=== PATIENT | female | born 1995 | race Two or more races ===

== ENCOUNTER 2024-07-20 08:11 | Inpatient (IN) | payer MEDICAID, SELFPAY ==
[2024-07-20] VITALS (80 sets, daily range): BP systolic 64–105; BP diastolic 36–74; PULSE 90–143; RESP 6–90; TEMP 36.8–38.1; O2SAT 68–100; BMI 20.3
--- NOTE | 2024-07-20 08:33 | PD.EDRME ---
Rapid Medical Screening Exam E Arrival date/time: 07/20/24 08:11 29-year-old female with no known medical history presents to the emergency room with a chief complaint of left flank pain, nausea and vomiting, fever, lower abdominal pelvic pain x 2 days. Patient denies dysuria, hematuria. I have greeted and performed a focused initial assessment of this patient. A comprehensive ED assessment and evaluation of the patient, analysis of all test results, and completion of the medical decision making process will be conducted by additional ED providers. Chief Complaint: Abdominal Pain Time Seen by Provider: 07/20/24 08:13 Vital signs: Vital Signs Temperature 98.3 F 07/20/24 08:24 Pulse Rate 90 07/20/24 08:24 Respiratory Rate 15 07/20/24 08:24 Pulse Oximetry (%) 96 07/20/24 08:24 Oxygen Delivery Method Room Air 07/20/24 08:24 Vital signs reviewed by provider: Yes
[2024-07-20] MEDS: ACETAMINOPHEN 500 MG TABLET 1000 MG PO (08:39)
[2024-07-20] MEDS: RINGERS LACTATED 1000 ML 1,000 ML 2000 ML IV (08:55)
[2024-07-20] MEDS: RINGERS LACTATED 1000 ML 1,000 ML 125 ML IV (08:56)
--- NOTE | 2024-07-20 09:10 | PC.NURSE ---
Pt arrived via w/c to ER room 3 from [facility] after assess by provider and pt was found to be hypotensive with b/p in the 80's. Pt is with at bedside, pt is GCS of 15 with delay in response, they are both bel[place]ian speaking, per pt's husbamd she came in with c/o abdominal pain x3 days and n/v for 2 days with diarrhea, when asked pt how many episodes of diarrhea pt noticed to become sleepy and unable to answer and states he is unsure due to pt going to bathroom every 30min yesterday.Per pt only has x3 , gestational DM and of 4 para of 2 with one spontaneous and 1 demise at , per no other medical hx. at bedside to assess pt, orders received and carried out.
[2024-07-20 09:28] LABS: Basophils # (Auto) 0.1 Thou/mm3 (0.0-0.2); Basophils % (Auto) 1 % (0-2.5); Eosinophils % (Auto) 0 % (0-10); Hematocrit 38.4 % (36.0-46.0); Hemoglobin 13.1 g/dL (12.0-16.0); Immature Granulocytes % (Auto) 13 % (0-0); Immature Granulocytes Auto 2.01 Thou/mm3 (0.00-0.00); Lymphocytes # (Auto) 0.6 Thou/mm3 (1.0-4.8); Lymphocytes % (Auto) 4 % (10-50); Mean Corpuscular HGB Conc 34.1 g/dl (31.0-37.0); Mean Corpuscular Hemoglobin 29.6 pg (25.0-35.0); Mean Corpuscular Volume 87 fL (80-100); Monocytes # (Auto) 0.3 Thou/mm3 (0.0-0.8); Monocytes % (Auto) 2 % (0-12); Neutrophils # (Auto) 12.8 Thou/mm3 (1.8-7.7); Neutrophils % (Auto) 81 % (37-80); Nucleated Red Blood Cell % 0 /100 WBC (0); Platelet Count 124 Thou/mm3 (140-440); RDW Standard Deviation 38.6 fL (36.4-46.3); Red Blood Count 4.43 Miln/mm3 (4.00-5.20); White Blood Count 15.8 Thou/mm3 (3.6-11.0)
[2024-07-20 09:49] LABS: Alanine Aminotransferase 25 U/L (10-49); Albumin, Serum 4.1 gm/dL (3.5-5.0); Albumin/Globulin Ratio 1.4 (1.2-2.2); Alkaline Phosphatase 108 U/L (46-116); Anion Gap 12 (7-16); Aspartate Amino Transferase 35 U/L (0-34); BUN/Creatinine Ratio 14 Ratio (12-20); Bilirubin,Total 0.4 mg/dL (0.3-1.2); Blood Urea Nitrogen 46 mg/dL (9-23); Calcium 8.7 mg/dL (8.3-10.6); Calcium (Corrected) 8.7 mg/dL (8.5-10.1); Carbon Dioxide 22.1 mMol/L (20.0-31.0); Chloride 99 mMol/L (98-107); Creatinine (Component) 3.4 mg/dL (0.6-1.3); Estimated Creatinine Clearance 20.7 mL/min (>60); Globulin 2.9 gm/dL (2.3-3.5); Lipase 25 U/L (12-53); Osmolality,Calculated 295 (275-295); Sodium 133 mMol/L (136-145); eGFR 18 See Note
[2024-07-20 09:51] LABS: Collection Type, Urine Clean Catch
[2024-07-20 09:57] LABS: Glucose 404 mg/dL (74-106)
[2024-07-20 10:31] LABS: HCG Qualitative,Urine Negative
[2024-07-20] MEDS: SODIUM CHLORIDE 0.9% 1000 ML 1,000 ML 999 ML IV ×3 (10:40→11:48)
[2024-07-20 10:44] LABS: Amorphous Crystals,Urine Present (Absent); Bacteria,Urine 3+; Bilirubin,Urine Negative (Negative); Blood,Urine 3+ (Negative); Color,Urine Yellow (Lt Yel-Yel); Glucose, Urine 4+ (Negative); Ketones,Urine Negative (Negative); Leukocyte Esterase,Urine Positive (Negative); Nitrite,Urine Negative (Negative); PH,Urine 5.5 (5.0-7.0); Protein,Urine 1+ (Neg - Trace); RBC,Urine 23 /hpf (0-3); Specific Gravity,Urine 1.015 (1.001-1.035); Squamous Epithelial Cell,Urine 10 /hpf (0-5); Urobilinogen,Urine Negative mg/dL (0.0-1.0); WBC,Urine 535 /hpf (0-5)
[2024-07-20 10:45] LABS: Clarity,Urine Turbid (Clear/Hazy)
--- NOTE | 2024-07-20 10:52 | EDNOTE_ITS ---
ED Abdominal Pain RME/HPI General Chief Complaint: Abdominal Pain Stated complaint: VOMITING/DIARRHEA/LEFT ABD PAIN FOR 2 DAYS Time seen by provider: 07/20/24 08:13 Arrival date/time: 07/20/24 08:11 RME / HPI RME / HPI narrative: 07/20/24 08:11 29-year-old female with no known medical history presents to the emergency room with a chief complaint of weakness with vomiting diarrhea multiple episodes for the past 2 days and was found to be hypotensive in triage. She has history of gestational diabetes but is not known to be diabetic. She is a and miscarriage x 2. She has had multiple bouts of diarrhea but there was no blood reported. And then generalized weakness she has no acute other problem. There is no known fever but she feels cold and chilling. Related Data Previous Rx's ?Medication ?Instructions ?Recorded acetaminophen 300 mg-codeine 30 mg 1 tab PO Q8H PRN pa in #14 tabs 12/22/23 tablet ibuprofen 800 mg tablet 800 mg PO Q8H PRN pain #30 t abs 12/22/23 Allergies Allergy/AdvReac Type Severity Reaction Status Date / Time No Known Allergies Allergy Verified 07/20/24 08:16 Review of Systems Review of Systems Narrative Review of Systems: Review of Systems: Constitutional: See HPI DENIES: Fevers,; Eyes: DENIES: Loss of vision, Head/Ear/Nose: DENIES: Loss of hearing. Throat: Denies dysphagia. Cardiovascular: Denies chest pain, Dyspnea or syncope. Respiratory: DENIES: Shortness of breath, Gastrointestinal: See HPI DENIES: Rectal bleeding or melena. Genitourinary: DENIES: Dysuria (painful or difficult urination),; Musculoskeletal: DENIES: Arthralgia (pain in a joint),; Skin: DENIES: Rash,; Neurological: DENIES: loss of function or movement,; Psychiatric: DENIES: recent major life stressor, emotional problem, illicit drug use or abuse,; Endocrinology: DENIES: Weight change,; Hematologic/Lymphatic: DENIES: Abnormal bruising. Allergic/Immunologic: DENIES: Urticaria (hives), Past Medical History Past Medical History NEUROLOGIC: Negative Neurological Disorders CARDIAC: Negative Cardiac Disorders GASTROINTESTINAL: Negative Gastrointestinal Disorders GENITOURINARY: Positive Genitourinary Disorders (hx uti) REPRODUCTIVE: Positive Previous Pregnancies MUSCULOSKELETAL: Negative Musculoskeletal Disorders ENDOCRINE: Positive Endocrine Disorders HEMATOLOGIC: Positive Blood Disorders and Anemia OTHER HISTORY: Positive Chicken Pox Family History FAMILY HISTORY: Negative Family Psychiatric Problems, Family Respiratory Disorders, Family Cardiac Disorders, Family Gastrointestinal Problems, Family Cancer, Family Surgery or Family Anesthesia Reaction Surgical History SURGICAL: Positive Section Social History SMOKING STATUS: Never smoker ED Exam Narrative Physical exam: Physical Exam: General: The vital signs were reviewed. Patient is pale hypotensive on arrival tachycardic at 105 later it is up to 115 the patient is the patient appears pale and ill but alert and follows commands Head & Scalp: Normocephalic, atraumatic. Face: Appears normal and is without lesions, deformity. Ears: Left external pinna appears normal. Right external pinna appears normal. Eyes: The sclera is anicteric. No obvious photophobia. The Left and Right Orbit/Lid/Conjunctiva appears normal without swelling, discoloration or injection. Nose: The nose is without deformity, discharge or tenderness; Throat: Appears normal. The mucous membranes are pink and moist without exudates, redness or mass seen. The tongue appears normal. Neck: The neck is supple and no apparent mass or adenopathy. Chest: The chest wall is normal in size and symmetry and has no chest wall tenderness or crepitus. The patient displays normal ventilator effort without retractions, accessory muscle use and has adequate air movement bilaterally with no wheezes and no rales. Cardiovascular: Regular rate and rhythm; No murmurs, rubs, or gallops; Gastrointestinal: The abdomen appears normal. No obvious hernias or mass. The abdomen is soft and benign, non-distended, with no pain, no guarding and no rebound tenderness. Bowel sounds are present and normal sounding. No CVA tenderness. Genitourinary: Back/Spine: Normal inspection. Extremities/Musculoskeletal/lymphatic: The bilateral upper and lower extremities are warm. There is no evidence of arterial insufficiency. There is no evidence of venous insufficiency/edema. The patient spontaneously moves bilateral upper and lower extremities with no pain and no limitation of movement. There is no apparent, injury or trauma. Skin: The skin is warm, dry and intact. No rashes. No petechia. No purpura. No abnormal bruising. The color is appropriate with no cyanosis. Mental status/Psychiatric: Mental status is appropriate for age. The patient has no apparent delusions, visual hallucinations, no apparent audible hallucinations. The patient has no apparent suicidal thoughts/ideation and no apparent homicidal thoughts/ideation. Neurological: The patient is awake, alert, interactive, cordial, cooperative and is oriented to name and situation. The patient follows commands and answers historical question with no impa irment. There is no visual disturbance apparent. The pupils are equal and reactive bilaterally with normal eye movements and no diplopia The bilateral upper and lower extremities have normal strength, normal range of motion and normal functioning. The gait, station and balance were not tested due to acuity Course Quality Measures Current suspected stage: sepsis Possible source: genitourinary Blood cultures ordered: completed in ED Antibiotic ordered: Yes sepsis Orders Category Date Time Status Occult Blood,Stool (Nursing) NOW Care 07/20/24 08:51 Active Beta Hydroxybutyrate Stat Lab 07/20/24 10:02 Ordered Blood Culture (Lab) Stat Lab 07/20/24 10:48 Ordered CBC Stat Lab 07/20/24 08:49 Completed CMP [Comprehensive Metabolic Panel] Stat Lab 07/20/24 08:49 Completed HCG Qualitative,Urine Stat Lab 07/20/24 09:40 Completed Lipase Stat Lab 07/20/24 08:49 Completed Stool Culture Stat Lab 07/20/24 08:51 Ordered Stool for WBCs Stat Lab 07/20/24 08:51 Ordered UA [Urinalysis] Stat Lab 07/20/24 09:40 Completed Urine Culture Stat Lab 07/20/24 09:40 Received VBG [Venous Blood Gas] Stat Lab 07/20/24 10:02 Ordered Acetaminophen Tab [Tylenol ES Tab] Med 07/20/24 08:33 Discontinued 1,000 mg PO X1 ONE Ringers Lactated 1000 ml [Lactated Ringers] 1,000 ml Med 07/20/24 08:50 Active IV 125 mls/hr Ringers Lactated 1000 ml [Lactated Ringers] 1,000 ml Med 07/20/24 08:50 Discontinued IV 2,000 mls/hr Sodium Chloride 0.9% 1000 ml [Ns] 1,000 ml Med 07/20/24 11:04 Active IV 999 mls/hr cefTRIAXone [Rocephin] 1,000 mg Med 07/20/24 10:48 Active SODIUM CHLORIDE 0.9% (Popper) [Ns 0.9% (P)] 50 ml IV X1 Vital Signs Vital signs: Vital Signs Temperature 98.3 F 07/20/24 08:24 Pulse Rate 90 07/20/24 08:24 Respiratory Rate 15 07/20/24 08:24 Blood Pressure 83/56 L 07/20/24 08:24 Pulse Oximetry (%) 96 07/20/24 08:24 Oxygen Delivery Method Room Air 07/20/24 08:24 Abdominal Pain MDM MDM Narrative MDM Narrative:: Patient is hypotensive tachycardic on arrival has a very dry mouth as a history of multiple bouts of vomiting and diarrhea. Fluid boluses were initiated for the hypotension a septic alert was called though her rectal temperature was normal. Appears to be severely dehydrated. Medical workup came back with a white count of 15.8 hemoglobin of 13.1 platelet count of 124,000 with a sodium 133 potassium 4 chloride 99 CO2 22.1 BUN 46 creatinine 3.4 consistent with acute kidney injury. Glucose was elevated at 404 suggesting that she has more than gestational diabetes. AST ALT are within normal limits. Lipase was negative. Urinalysis came back specific gravity of 1015 with 535 white blood cells consistent with a urinary tract infection. Because the persistent hypotension despite 1.5 to almost 2 L of fluid now we will consult critical care for an ICU admit presuming he is more septic than we can tell. Lactic acid blood cultures are pending. At 1120 patient's completed 3 L of fluid she still tacky in the 130s and blood pressure is still low. I contacted Dr. Yap and he will come down to admit this patient. At 1134 hrs. critical care is down evaluating this patient will continue with aggressive fluid management agree with the antibiotics and CT is pending make sure there is no obstructive process going on in the urinary symptoms some. She be noted I have reevaluated patient multiple times in the past 3 hours and spent at least 45 minutes managing fluids and in consultation with critical care. Patient data External records reviewed:: [facility] previous records (I reviewed ED visit on 11/20/23) Clinical information provided by:: patient Social determinants that could affect healthcare access:: none Patient has the following chronic illnesses:: hx of gestational diabetes How is presenting disease/condition affected by chronic disease/condition?: uneffected by Evaluation data The following diagnostics were reviewed and interpreted by me:: lab results and radiology exam(s) Lab and/or radiology exams considered but not ordered:: none Interpretation Summary: as noted above Medications / Prescriptions Medications or Prescriptions considered but not ordered:: none Medication administrations:: Medication Administration History Lactated Ringer's (Lactated Ringers) 1,000 mls @ 125 mls/hr IV .Q8H ONE Stop: 07/20/24 16:49 Last Infusion: 07/20/24 11:00 Dose: Infused Documented By: Admin: 07/20/24 08:56 Dose: 125 mls/hr Documented By: IZA Ceftriaxone Sodium 1,000 mg/ (Sodium Chloride) 50 mls @ 100 mls/hr IV X1 ONE Stop: 07/20/24 11:17 Sodium Chloride (Ns) 1,000 mls @ 999 mls/hr IV .Q1H1M ONE Stop: 07/20/24 12:04 Discontinued Medications Acetaminophen (Acetaminophen 500 Mg Tablet) 1,000 mg PO X1 ONE Stop: 07/20/24 08:34 Last Admin: 07/20/24 08:39 Dose: 1,000 mg Documented By: BD Lactated Ringer's (Lactated Ringers) 1,000 mls @ 2,000 mls/hr IV .Q30M ONE Stop: 07/20/24 09:19 Last Infusion: 07/20/24 10:35 Dose: Infused Documented By: Admin: 07/20/24 08:55 Dose: 2,000 mls/hr Documented By: IZA see above Consultations Consultation(s) initiated? (list below): Yes Diagnosis Differential diagnosis abdominal pain: abdominal pain, acute appendicitis, calculus of kidney, constipation, diverticulitis, endometriosis, gastroenteritis, pancreatitis and other (Sepsis, UTI) Most likely diagnosis given after review of the tests above:: Urosepsis with severe dehydration with acute renal failure and underlying diabetes untreated cannot exclude a viral gastroenteritis causing diarrhea. Admission Indicated Admission indicated?: indicated Admission Request Was there a request for admission?: Yes Admission Attestation Admission request attestation: Discussed case with [] from Hospitalist service regarding admission. Discussed patients ED course, exam findings, labs, and radiology results. The Hospitalist [agrees,declines] to accept the patient for admission. Disposition Plan Disposition Plan: Admit Critical Care Time Critical Care Time Critical Care Time: Yes Total Critical Care Time (min.): 45 Attestation: The high probability of sudden, clinically significant deterioration in the patient's condition required the highest level of my preparedness to intervene urgently. The services I provided to this patient were to treat and/or prevent clinically significant deterioration. Services included the following: chart data review, reviewing nursing notes and/or old charts, documentation time, senior energy consultant collaboration regarding findings and treatment options, medication orders and management, direct patient care, vital sign assessments and ordering, interpreting and reviewing diagnostic studies and lab tests. Aggregate critical care time includes only time during which I was engaged in work directly related to the patient's care, as described above, whether at bedside or elsewhere in the Emergency Department. It did not include time spent performing other reported procedures or the services of residents, students, nurses or physician assistants. Discharge Plan Plan Patient Disposition: Admit Acute Care w/in Hospital Disposition Comment: ICU Dr. Iverson Prescriptions/Referrals Prescriptions/Med Rec: No Action acetaminophen-codeine 300-30 mg tablet 1 tab PO Q8H PRN (Reason: pain) Qty: 14 0RF ibuprofen 800 mg tablet 800 mg PO Q8H PRN (Reason: pain) Qty: 30 0RF Referrals: Janay Pichardo [employer] [Primary Care Provider] - In 1 week Problem List Clinical Impression: Acute hypotension, Urinary tract infection, Acute renal failure (ARF), Hyperglycemia, Sepsis Patient/Caregiver Discharge Instructions Print Language: Croatian Stand Alone Forms: Marina Award Info., Patient Portal Info Letter
[2024-07-20] MEDS: SODIUM CHLORIDE 0.9% 1000 ML 2,000 ML 999 ML IV (11:05)
[2024-07-20 11:21] LABS: Base Excess, Venous -11 (-3-3); O2 Saturation, Venous 66 % (96-97); PCO2, Venous 33 mmHg (36-56); PO2, Venous 38 mmHg (15-58); pH, Venous 7.27 (7.33-7.66)
--- NOTE | 2024-07-20 11:22 | XR_ITS ---
Examination: AP chest single view Technique one AP portable upright chest single view Exam date and time: July 20, 2024 1037 hrs. Indications: Hypotension today. Findings: Normal heart size. Mild vascular congestion. No lobar pneumonia or pulmonary edema Impression: Mild vascular congestion
--- NOTE | 2024-07-20 11:22 | XR_ITS ---
EXAMINATION: CT chest abdomen pelvis wo ORDERING PROVIDER: Saleem Everett MD HISTORY: Hypotension tachycardia. Further history discussed with ER doctor is refractory hypotension, patient having received 7 L of IV fluid, history of gestational diabetes now with uncontrolled glucose, and pyuria. TECHNIQUE: Without intravenous or oral contrast, CT was used in the volumetric, helical imaging acquisition of the chest, abdomen, and pelvis with 2-D and 3-D reformats generated on a separate workstation and submitted for interpretation. Institutional dose reducing protocols were utilized. Evaluation of hollow viscus and solid viscera is limited secondary to lack of intravenous and oral contrast. RADIATION DOSE: DLP 463 mGy-cm COMPARISON: None. FINDINGS: Imaging is motion degraded, especially of the chest, and difficult to interpret fine detail 6. There are increased interstitial thickening, with scattered ground glass/airspace opacities most pronounced on the right side. Due to motion degradation, evaluation of small pulmonary nodules is limited. There is pulmonary vascular prominence. Trace right pleural effusion is present. There is bibasilar atelectasis. Perihilar and mediastinal calcified lymph nodes are present. There is probably a small azygos lobe variant. There is a punctate calcification at the diaphragm/hepatic dome. No hepatic lesion is identified. There is dependent subcentimeter cholelithiasis. Near complete fatty replacement of the pancreatic body and tail. Spleen grossly unremarkable. Adrenal glands unremarkable. Mild amount of right-sided perinephric fat stranding. No right-sided hydronephrosis. Moderate left-sided hydronephrosis with air primarily in the collecting system and proximal ureter with hydroureter. Moderate to severe left-sided perinephric fat stranding and ureterectasis. No ureteral stone identified. Mild bladder wall thickening. Urinary catheter present, without balloon identified. Antidependent air in the bladder. Fluid density in the rectum. No CT findings for bowel obstruction. Appendix nondilated. Some scattered fluid density in loops of small bowel, which are not dilated. Uterus and ovaries grossly unremarkable, though not well evaluated given noncontrast technique. Small amount of free fluid in the pelvis. Ventral lower abdominal/pelvic wall scar. Probable mild amount of periportal edema. Vasculature otherwise grossly unremarkable given noncontrast technique, apart from some trace early atherosclerotic changes of the right hypogastric artery posterior division. There is mild subcutaneous fat stranding of the lower abdominal wall and pelvis. IMPRESSION: 1. Inflammatory changes surrounding the genitourinary system, most severe about the left kidney, which demonstrates moderate hydronephrosis and air primarily located in the collecting system. Overall favor emphysematous pyelitis, though degree of inflammation and lack of IV contrast makes developing emphysematous pyelonephritis difficult to exclude. Urology evaluation is highly recommended. Query if patient has signs and symptoms of urosepsis. 2. Interstitial thickening with right greater than left multilobar airspace opacities, along with trace right pleural effusion. Given history, favor pulmonary edema, though superimposed pneumonia could have a similar appearance. 3. Early atherosclerotic changes and near complete fatty replacement of the pancreatic body and tail. Query history of metabolic versus congenital syndromes, including uncontrolled diabetes mellitus. 4. Findings which can be seen with enteritis. 5. Perihilar and mediastinal calcified lymph nodes, can be seen with history granulomatous disease. Discussed with Dr. Pereira at 3:12 PM 07/20/2024 via phone. He expressed understanding.
[2024-07-20 11:29] LABS: Beta Hydroxybutyrate 0.1 mmol/L (<0.6)
[2024-07-20] MEDS: cefTRIAXone 1,000 MG in SODIUM CHLORIDE 0.9% (Popper) 50 ML 100 MG IV ×2 (11:38→12:13)
--- NOTE | 2024-07-20 11:54 | ESHP_ITS ---
Documentation for date of: 07/20/24 HPI History of Present Illness History of present illness: 29-year-old female with past medical history of gestational diabetes mellitus, recurrent urinary tract infection came to the ED with chief complaint of multiple episode of nausea and vomiting multiple episode of diarrohoa with no blood in it since last 2 days, she states she has not changed anything in her diet. she is A2. As per her ED vitals significant for BP?86/74, P?127, RR?36, temperature?99.4 , 96L on room air . Initial labs WBC?15.8, hemoglobin?13.1, VBG?pH 7.27, pCO2?33, pO2?38, sodium?133, potassium?4, BUN?36, creatinine?3.6, glucose?404, IGF-I?18, AST?35, ALT?25, alk phos?118. UA positive for urinary tract infection. hCG?negative. Imaging?chest x-ray?Mild vascular congestion , CT abdomen and pelvis- Inflammatory changes surrounding the genitourinary system, most severe about the left kidney, which demonstrates moderate hydronephrosis and air primarily located in the collecting system. Overall favor emphysematous pyelitis, though degree of inflammation and lack of IV contrast makes developing emphysematous pyelonephritis difficult to exclude.2. Interstitial thickening with right greater than left multilobar airspace opacities, along with trace right pleural effusion.3. Early atherosclerotic changes and near complete fatty replacement of the pancreatic body and tail. Query history of metabolic versus congenital syndromes, including uncontrolled diabetes mellitus. In ED she received 2 g of IV ceftriaxone. Will follow-up on the lactic acid, she received total of 6 L of IV fluids(4 L NS, 2 L LR) . Patient was still hypotensive. Upgraded to ICU for severe sepsis for pressor support. PMH- as above PSH- section Allergy?none Social history?lives with and children Medication?none Review of Systems Review of Systems Systems Reviewed: All systems reviewed, normal except as documented Narrative Review of Systems: GENERAL: adult female seen resting in hospital bed, mild stressed HEENT: Normocephalic, atraumatic. Pupils are equal and reactive. Oral mucosa is moist. NECK: Supple, nontender, no JVD CHEST: Symmetrical, atraumatic and with equal expansion ,Nontender on palpation CARDIOVASCULAR: Tachycardic S1/S2. no murmur or gallop rub or extra beats. LUNGS: Clear to auscultation bilaterally with symmetrical chest rise. No laboring tachypnea or wheezing. No intercostal subcostal retraction. No rales and no rhonchi. ABDOMEN: Soft, flat, nontender to palpation, no guarding or rebound tenderness. Active and normal bowel sounds. EXTREMITIES:Moves all 4 extremities,No B/L LE edema. SKIN: Warm and dry, no jaundice or rashes noted. NEURO: Patient is AO x 3, Cranial nerves II through XII grossly intact. There is no focal neurologic deficits noted. PSYCHIATRIC: Patient is in normal mood, cooperative, no SI or HI or hallucinations. Exam Vital Signs Temp Pulse Resp BP Pulse Ox O2 Del Method 99.4 F 143 H 32 H 96/71 99 Room Air 07/20/24 11:24 07/20/24 11:24 07/20/24 11:24 07/20/24 11:24 07/20/24 11:24 07/20/24 11:24 Results: Labs 07/20/24 08:49 07/20/24 13:58 Labs: Short CBC 07/20/24 Range/Units 08:49 WBC 15.8 H (3.6-11.0) Thou/mm3 Hgb 13.1 (12.0-16.0) g/dL Hct 38.4 (36.0-46.0) % Plt Count 124 L (140-440) Thou/mm3 BMP 07/20/24 08:49 Sodium 133 L Potassium 4.0 Chloride 99 Carbon Dioxide 22.1 BUN 46 H Creatinine 3.4 H Glucose 404 H* Calcium 8.7 Liver Function 07/20/24 Range/Units 08:49 Total Bilirubin 0.4 (0.3-1.2) mg/dL AST 35 H (0-34) U/L ALT 25 (10-49) U/L Alkaline Phosphatase 108 (46-116) U/L Albumin 4.1 (3.5-5.0) gm/dL Urine 07/20/24 Range/Units 09:40 Urine Color Yellow (Lt Yel-Yel) Urine Clarity Turbid A (Clear/Hazy) Urine pH 5.5 (5.0-7.0) Ur Specific Mott 1.015 (1.001-1.035) Urine Protein 1+ A (Neg - Trace) Urine Glucose (UA) 4+ A (Negative) ABG Interpretation ABG results: 07/20/24 11:12 VBG pH 7.27 L VBG pCO2 33 L VBG pO2 38 VBG Base Excess -11 L Quality Measures Quality Measures sepsis Current suspected stage: sepsis Possible source: genitourinary Blood cultures ordered: completed in ED Antibiotic ordered: Yes Medications Home Medications and Allergies Allergies Allergy/AdvReac Type Severity Reaction Status Date / Time No Known Allergies Allergy Verified 07/20/24 08:16 Visit Medications Acetaminophen (Acetaminophen 325 Mg Tablet) 650 mg PO Q6H PRN PRN Reason: Fever >101.5 Stop: 08/19/24 11:48 Lactated Ringer's (Lactated Ringers) 1,000 mls @ 125 mls/hr IV .Q8H ONE Stop: 07/20/24 16:49 Last Infusion: 07/20/24 11:00 Dose: Infused Sodium Chloride (Ns) 1,000 mls @ 999 mls/hr IV .Q1H1M ONE Stop: 07/20/24 12:04 Last Infusion: 07/20/24 11:47 Dose: Infused Ceftriaxone Sodium 1,000 mg/ (Sodium Chloride) 50 mls @ 100 mls/hr IV X1 ONE Stop: 07/20/24 12:14 Sodium Chloride (Ns) 1,000 mls @ 999 mls/hr IV .Q1H1M ONE Stop: 07/20/24 12:43 Last Infusion: 07/20/24 11:48 Dose: Infused Sodium Chloride (Ns) 2,000 mls @ 999 mls/hr IV .Q2H1M ONE Stop: 07/20/24 13:45 Sodium Chloride (Ns) 1,000 mls @ 999 mls/hr IV .Q1H1M ONE Stop: 07/20/24 12:45 Ondansetron HCl (Ondansetron Inj 2 Mg/Ml Inj 2 Ml) 4 mg IV Q6H PRN; Protocol PRN Reason: NAUSEA OR VOMITING Stop: 08/19/24 11:48 Sennosides (Senna Tablet) 1 tab PO QDAY PRN; Protocol PRN Reason: constipation Stop: 08/19/24 11:48 Discontinued Medications Acetaminophen (Acetaminophen 500 Mg Tablet) 1,000 mg PO X1 ONE Stop: 07/20/24 08:34 Last Admin: 07/20/24 08:39 Dose: 1,000 mg Lactated Ringer's (Lactated Ringers) 1,000 mls @ 2,000 mls/hr IV .Q30M ONE Stop: 07/20/24 09:19 Last Infusion: 07/20/24 10:35 Dose: Infused Ceftriaxone Sodium 1,000 mg/ (Sodium Chloride) 50 mls @ 100 mls/hr IV X1 ONE Stop: 07/20/24 11:17 Last Admin: 07/20/24 11:38 Dose: 100 mls/hr Vancomycin HCl 1,000 mg/ (Sodium Chloride) 250 mls @ 150 mls/hr IV X1 ONE Stop: 07/20/24 13:07 Last Admin: 07/20/24 11:42 Dose: Not Given Vancomycin/Sodium Chloride (Vancomycin/Ns 1 Gm Ivpb) 200 mls @ 120 mls/hr IV X1 ONE Stop: 07/20/24 13:09 Last Admin: 07/20/24 11:42 Dose: Not Given Assessment & Plan Plan 29-year-old female with past medical history of gestational diabetes mellitus, recurrent urinary tract infection came to the ED with chief complaint of multiple episode of nausea and vomiting multiple episode of diarrohoa with no blood in it since last 2 days. Admitted for sepsis secondary to urinary tract infection [employer] Stable CVS #Tachycardic -ekg sinus tachycardia , secodary to sepsis . #septic shock -secondary to UTI -on levophed (SEE ID below ) RESPI Chest xray- mild vascular congestion GI #diarrhoea -iv fluids give , -She did not had any new episode in the hospital -we will follow up urine culture -Protonix ENDO # New onset Diabetes mellitus # History of gestational diabetes mellitus -She had a history of diabetes mellitus after that she never followed, A1c today came back at 14 -Started on lisulin sliding scale -Insulin Glargine 5 sq hs . -hypoglycemia protocol in place ID # Severe sepsis secondary to urinary tract infection # emphysematous pyelitis, -Patient has a recurrent history of urinary tract infection with E. coli -UA was positive for UTI -She received 6 L of fluid in the ED (4 NS, 2 LR) -levophed started for pressure support -LR at the rate 125 mL/h -LA- 4.1 -Will follow-up on blood culture, urine culture -Started the patient on ceftriaxone 2 g daily -Follow-up MRSA nares -Gray catheter inserted for strict FREDDY's #CT abdomen and pelvis- Inflammatory changes surrounding the genitourinary system, most severe about the left kidney, which demonstrates moderate hydronephrosis and air primarily located in the collecting system. Overall favor emphysematous pyelitis, though degree of inflammation and lack of IV contrast makes developing emphysematous pyelonephritis difficult to exclude.2. Interstitial thickening with right greater than left multilobar airspace opacities, along with trace right pleural effusion.3. Early atherosclerotic changes and near complete fatty replacement of the pancreatic body and tail. Query history of metabolic versus congenital syndromes, including uncontrolled diabetes mellitus. -Changed antibiotics to zosyn and added fluconazole RENAL #SHANTI -Most likely prerenal in the setting of sepsis -on admission Cr of 3.4 -She received 6 L of fluid in the ED (4 NS, 2 LR) -Will follow-up CMP in the afternoon. -Will continue to monitor #cultures -blood culture- pending -Urine culture - pending Disposition: Admitted to ICU for severe sepsis secondary to urinary tract infection requiring pressor support Diet and fluids: LR at the rate 125 mL/h, n.p.o. DVT prophylaxis: Heparin GI prophylaxis: Protonix CODE STATUS: Full code Discussed the patient with my attending Anum Em MD,PGY-3 Attending Provider Attestation/Addendum Patient seen and examined with the above resident, Anum Arciniega MD. I agree with the findings, assessment, and plan of care as documented except for any differences below. Patient with pyelonephritis. CT abdomen/ pelvis showed significant pyelonephritis with gas component. No definitive obstruction though hydroureter and hydronephrosis noted. Started on ceftriaxone, high dose but transitioned Zosyn for broader coverage. Also on diflucan for amarjit as alternate etiology. Patient with downtrending lactate. Monitor UOP closely. Follow up blood and urine cxs. Patient with improving renal function, follow up with electrolyte replacement promptly. Patient with significant risk of worsening though on low dose levophed alone currently. Maintain MAP >65. If unable to clear infection promptly may need nephrostomy drain placement. Patient and updated on plan of care at bedside in ED. Patient continues to require critical care services for septic shock 2/2 acute emphysematous pyelonephritis and acute renal failure. She remains at risk for further morbidity and mortality warranting close monitoring any care in the intensive care unit. Total critical care time: I personally spent 35 minutes for review of physiologic parameters, directing plan of care, and coordination of care with other specialists. This is exclusive of time spent teaching housestaff or performing any separate billable procedures.
[2024-07-20 12:32] LABS: Lactate (Lactic Acid) 4.1 mMol/L (0.4-2.0)
[2024-07-20 12:37] LABS: Glucose Estimated Average 355 mg/dL (80-131)
[2024-07-20] MEDS: Norepinephrine/D5W 8mg/250ml 8 MG/250 ML BAG 5.036 MG IV (12:52)
[2024-07-20 14:44] LABS: Alanine Aminotransferase 18 U/L (10-49); Albumin, Serum 2.7 gm/dL (3.5-5.0); Albumin/Globulin Ratio 1.4 (1.2-2.2); Alkaline Phosphatase 303 U/L (46-116); Anion Gap 11 (7-16); Aspartate Amino Transferase 17 U/L (0-34); BUN/Creatinine Ratio 17 Ratio (12-20); Bilirubin,Total 0.2 mg/dL (0.3-1.2); Blood Urea Nitrogen 40 mg/dL (9-23); Calcium (Corrected) 7.2 mg/dL (8.5-10.1); Carbon Dioxide 15.9 mMol/L (20.0-31.0); Chloride 115 mMol/L (98-107); Creatinine (Component) 2.4 mg/dL (0.6-1.3); Estimated Creatinine Clearance 29.3 mL/min (>60); Glucose 160 mg/dL (74-106); Osmolality,Calculated 295 (275-295); Potassium 2.8 mMol/L (3.4-5.1); Sodium 142 mMol/L (136-145); Total Protein 4.7 gm/dL (5.7-8.2); eGFR 27 See Note
[2024-07-20 14:47] LABS: Calcium 6.2 mg/dL (8.3-10.6)
[2024-07-20] MEDS: PANTOPRAZOLE INJ 40 MG VIAL IV (15:15)
[2024-07-20] MEDS: HEPARIN SOD INJ 5000 UNIT/ML VIAL SC ×2 (15:22→21:42)
[2024-07-20 15:25] LABS: Reflex Lactate? Y
[2024-07-20] MEDS: PIPER/TAZO INJ 3.375 GM in SODIUM CHLORIDE 0.9% (Popper) 50 ML IV ×2 (16:15→21:47)
[2024-07-20 16:23] LABS: Lactic Acid, 3 HR 2.8 mMol/L (0.4-2.0)
[2024-07-20] MEDS: FLUCONAZOLE 100 MG TABLET 400 MG PO (16:28)
[2024-07-20] MEDS: POTASSIUM CHLORIDE 10% 20 MEQ/15 ML UDC 30 MEQ PO ×2 (16:55→17:38)
--- NOTE | 2024-07-20 18:26 | XR_ITS ---
Examination: AP chest single view Technique one AP portable semiupright chest single view Exam date and time: July 20, 2024 1735 hrs. Comparison July 17, 2024 10:39 AM Indications: Post central line placement Findings: Right internal jugular central line tip right atrium No pneumothorax Perihilar bilateral pneumonia Impression: Right internal jugular central line tip right atrium
--- NOTE | 2024-07-20 18:43 | PD.RESPROC ---
Procedures Procedure Date / Time 07/20/24 1843 Procedure Narrative Procedure Narrative: Attending Attestation: I was not present at the time of procedure though plan of care discussed with me and I agree with procedure as completed/ documented. Follow up chest film shows no post procedure PTX though line appears to be deep and can be retracted 4 cm. Okay to use in interim. Monitor for ectopy Central Line Placement Right IJ: Indication(s): shock Informed consent obtained: from patient Time out done, and the following verified: correct patient and procedure Patient placed on monitor/pulse ox: Yes Hand Hygiene: scrub and soap & water Max Sterile Barrier Techniques used: cap, mask, sterile gown, sterile gloves and sterile full body drape Central line prep: Chlorhexidine scrub Local anesthesia used: lidocaine 1% Amount of anesthesia used (mL): 3 Ultrasound used for placement: Yes Sterile Technique if Ultrasound used, including sterile gel: yes Central line lumen inserted: triple Post procedure: sutured in place, good blood return, all ports aspirated, flushed, capped and sterile dressing applied Post procedure x-ray: tip of catheter in good position and no pneumothorax seen Patient tolerated procedure: well and no complications EBL(ml): 1 Complications: none
[2024-07-20] MEDS: INSULIN GLARGINE (Lantus) 5 UNIT/0.05 ML (PER 5 UNITS) SC (21:41)
[2024-07-20 22:02] LABS: Stool for WBCs Negative (Negative)
[2024-07-21] VITALS (112 sets, daily range): BP systolic 53–112; BP diastolic 43–73; PULSE 90–119; RESP 0–99; TEMP 36.9–38.5; O2SAT 86–100; BMI 21.4
[2024-07-21] MEDS: ACETAMINOPHEN 325 MG TABLET 650 MG PO (01:37)
[2024-07-21] MEDS: ONDANSETRON INJ 2 MG/ML INJ 2 ML 4 MG IV ×2 (01:37→23:57)
--- NOTE | 2024-07-21 02:55 | XR_ITS ---
Examination: AP chest single view Technique one AP portable upright chest single view Exam date and time: July 21, 2024 0209 hrs. Comparison July 20, 2024 Indications: Reposition central line Findings: Right internal jugular central line tip right atrium Atelectasis versus pneumonia left base No pneumothorax Impression: Right internal jugular central line tip right atrium
[2024-07-21] MEDS: LIDOCAINE HCL 1% 20 ML VIAL 10 ML INFL (03:00)
[2024-07-21] MEDS: HEPARIN SOD INJ 5000 UNIT/ML VIAL SC ×3 (05:16→22:06)
[2024-07-21] MEDS: PIPER/TAZO INJ 3.375 GM in SODIUM CHLORIDE 0.9% (Popper) 50 ML IV (05:16)
[2024-07-21 05:33] LABS: Basophils # (Auto) 0.1 Thou/mm3 (0.0-0.2); Basophils % (Auto) 1 % (0-2.5); Eosinophils % (Auto) 0 % (0-10); Hematocrit 31.3 % (36.0-46.0); Hemoglobin 10.4 g/dL (12.0-16.0); Immature Granulocytes % (Auto) 1 % (0-0); Immature Granulocytes Auto 0.06 Thou/mm3 (0.00-0.00); Lymphocytes % (Auto) 9 % (10-50); Mean Corpuscular HGB Conc 33.2 g/dl (31.0-37.0); Mean Corpuscular Hemoglobin 29.4 pg (25.0-35.0); Mean Corpuscular Volume 88 fL (80-100); Monocytes # (Auto) 0.3 Thou/mm3 (0.0-0.8); Monocytes % (Auto) 2 % (0-12); Neutrophils # (Auto) 9.7 Thou/mm3 (1.8-7.7); Neutrophils % (Auto) 88 % (37-80); Nucleated Red Blood Cell % 0 /100 WBC (0); RDW Standard Deviation 41.3 fL (36.4-46.3); Red Blood Count 3.54 Miln/mm3 (4.00-5.20); White Blood Count 11.1 Thou/mm3 (3.6-11.0)
[2024-07-21 05:38] LABS: Platelet Count 55 Thou/mm3 (140-440)
[2024-07-21 06:31] LABS: Slide Review Platelets confirmed
[2024-07-21 06:34] LABS: Alanine Aminotransferase 42 U/L (10-49); Albumin/Globulin Ratio 1.4 (1.2-2.2); Alkaline Phosphatase 108 U/L (46-116); Anion Gap 12 (7-16); Aspartate Amino Transferase 285 U/L (0-34); BUN/Creatinine Ratio 16 Ratio (12-20); Bilirubin,Total 0.3 mg/dL (0.3-1.2); Blood Urea Nitrogen 47 mg/dL (9-23); Calcium (Corrected) 7.8 mg/dL (8.5-10.1); Carbon Dioxide 15.4 mMol/L (20.0-31.0); Chloride 117 mMol/L (98-107); Creatinine (Component) 2.9 mg/dL (0.6-1.3); Estimated Creatinine Clearance 24.7 mL/min (>60); Globulin 2.1 gm/dL (2.3-3.5); Glucose 87 mg/dL (74-106); Magnesium 1.4 mg/dL (1.6-2.6); Osmolality,Calculated 298 (275-295); Potassium 3.2 mMol/L (3.4-5.1); Sodium 144 mMol/L (136-145); Total Protein 5.1 gm/dL (5.7-8.2); eGFR 22 See Note
--- NOTE | 2024-07-21 08:00 | PC.NURSE ---
Notified Marlene weiss of CT scan abdomen and pelvis w/out contrast for possible nephrostomy tube placement ordered by dr. moore if ordering MD still wants to proceed with nephrostomy tube placement. If so, New order for nephrostomy tube need to be placed.
[2024-07-21 09:14] LABS: INR 1.3 (0.9-1.3); Prothrombin Time 13.7 Seconds (9.0-12.2)
[2024-07-21] MEDS: PANTOPRAZOLE INJ 40 MG VIAL IV (09:15)
[2024-07-21 09:56] LABS: Band Neutrophils (Manual) 26 % (0-6); Lymphocytes (Manual) 6 % (20-44); Metamyelocytes (Manual) 5 % (0-0); Monocytes (Manual) 5 % (2-9); Neutrophils (Manual) 58 % (50-70)
[2024-07-21 10:52] LABS: Clostridium Difficile PCR Negative (Negative)
[2024-07-21] MEDS: FLUCONAZOLE 100 MG TABLET 400 MG PO (11:41)
[2024-07-21] MEDS: DEXTROSE 50%-WATER INJ 50 ML SYRINGE IV (11:50)
[2024-07-21] MEDS: POTASSIUM CHLORIDE 20 mEq TABCR 40 MEQ PO (12:03)
--- NOTE | 2024-07-21 12:05 | ESPR_ITS ---
Documentation for date of: 07/21/24 Subjective Subjective Interval history: Patient was seen and examined. No acute overnight events. We were trying to wean from Levophed, however unsuccessful, Levophed rate was decreased from 0.09- 0.07, will continue to closely monitor BP, MAP is currently above 62, otherwise patient denies any acute complaints, labs improved, leukocytosis improved, patient does have anemia, most likely hemodilutional in the setting of fluid resuscitation. Patient is having adequate urine output, blood culture grew GNR, urine culture still pending, we will continue coverage with Zosyn, patient also getting empirically fluconazole. Continue closely monitor vitals, kidney function compared to admission slightly improved down from 3.3-2.9, AST was elevated from 17-255. Given the improvement of kidney function and hemodynamics, we will hold off on nephrostomy tube placement, will continue closely monitor, for now continue current management. Exam Vital Signs Temp Pulse Resp BP Pulse Ox O2 Del Method O2 Flow Rate 98.4 F 94 26 H 80/52 L 100 Room Air 2 07/21/24 12:00 07/21/24 12:00 07/21/24 12:00 07/21/24 12:00 07/21/24 12:00 07/21/24 12:07/20/24 17:06 Narrative Exam GENERAL: no acute distress, AAO x3, well nourished. Citizen [place]-speaking HEENT: Head AT/ NC. Mucous membranes moist. PERRL. NECK: Supple, no lymphadenopathy, no carotid bruits. CARDIOVASCULAR: RRR. Normal S1/S2, No m/r/g. No pitting edema of bilateral LEs. RESPIRATORY: CTAB. No wheezing, rhonchi, crackles. GASTROINTESTINAL: Abdomen soft, non tender no palpable masses. Bowel sounds present in all 4 quadrants. Longitudinal scar from was noted MUSCULOSKELETAL:? No cyanosis or edema, no visible joint swelling. NEUROLOGICAL: CN II-XII grossly intact. No focal deficits. Sensation intact, symmetric. PSYCHIATRIC: Awake and alert, not agitated, normal mood and affect. INTEGUMENTARY: No obvious rashes, no jaundice, normal turgor. Objective Labs 07/22/24 04:45 07/22/24 04:45 Labs: Laboratory Results - last 24 hr 07/20/24 07/20/24 07/20/24 08:49 12:20 13:58 WBC RBC Hgb Hct MCV MCH MCHC RDW Std Deviation Plt Count Neut % (Auto) Lymph % (Auto) Whitley % (Auto) Eos % (Auto) Baso % (Auto) Neut # (Auto) Lymph # (Auto) Whitley # (Auto) Eos # (Auto) Baso # (Auto) Immature Gran # (Auto) Absolute Nucleated RBC Immature Gran % Neutrophils % (Manual) Monocytes % (Manual) Metamyelocytes % Nucleated RBC % Band Neutrophils Lymphocytes (Manual) PT INR Sodium 142 Potassium 2.8 L D Chloride 115 H Carbon Dioxide 15.9 L Anion Gap 11 BUN 40 H Creatinine 2.4 H D Estim Creat Clear Calc 29.3 L eGFR 27 L BUN/Creatinine Ratio 17 Glucose [address] Glu mg/dL 355 H Hemoglobin A1c 14.0 H Calculated Osmolality 295 Lactic Acid 4.1 H* Calcium 6.2 L* D Corrected Calcium 7.2 L D Magnesium Total Bilirubin 0.2 L AST 17 ALT 18 Alkaline Phosphatase 303 H D Total Protein 4.7 L Albumin 2.7 L D Globulin 2.0 L Albumin/Globulin Ratio 1.4 Stool for White Cells Stl C. diff Tox B Gene Misc Test Result 07/20/24 07/20/24 07/21/24 16:13 20:40 00:00 WBC RBC Hgb Hct MCV MCH MCHC RDW Std Deviation Plt Count Neut % (Auto) Lymph % (Auto) Whitley % (Auto) Eos % (Auto) Baso % (Auto) Neut # (Auto) Lymph # (Auto) Whitley # (Auto) Eos # (Auto) Baso # (Auto) Immature Gran # (Auto) Absolute Nucleated RBC Immature Gran % Neutrophils % (Manual) Monocytes % (Manual) Metamyelocytes % Nucleated RBC % Band Neutrophils Lymphocytes (Manual) PT INR Sodium Potassium Chloride Carbon Dioxide Anion Gap BUN Creatinine Estim Creat Clear Calc eGFR BUN/Creatinine Ratio Glucose Estimated Ave Glu mg/dL Hemoglobin A1c Calculated Osmolality Lactic Acid 2.8 H Calcium Corrected Calcium Magnesium Total Bilirubin AST ALT Alkaline Phosphatase Total Protein Albumin Globulin Albumin/Globulin Ratio Stool for White Cells Negative Stl C. diff Tox B Gene Negative Misc Test Result 07/21/24 07/21/24 04:35 05:00 WBC 11.1 H RBC 3.54 L Hgb 10.4 L D Hct 31.3 L MCV 88 MCH 29.4 MCHC 33.2 RDW Std Deviation 41.3 Plt Count 55 L D Neut % (Auto) 88 H Lymph % (Auto) 9 L Whitley % (Auto) 2 Eos % (Auto) 0 Baso % (Auto) 1 Neut # (Auto) 9.7 H Lymph # (Auto) 1.0 Whitley # (Auto) 0.3 Eos # (Auto) 0.0 Baso # (Auto) 0.1 Immature Gran # (Auto) 0.06 H Absolute Nucleated RBC 0.00 Immature Gran % 1 H Neutrophils % (Manual) 58 Monocytes % (Manual) 5 Metamyelocytes % 5 H Nucleated RBC % 0 Band Neutrophils 26 H Lymphocytes (Manual) 6 L PT 13.7 H INR 1.3 Sodium 144 Potassium 3.2 L Chloride 117 H Carbon Dioxide 15.4 L Anion Gap 12 BUN 47 H Creatinine 2.9 H D Estim Creat Clear Calc 24.7 L eGFR 22 L BUN/Creatinine Ratio [address] Glu mg/dL Hemoglobin A1c Calculated Osmolality 298 H Lactic Acid Calcium 7.0 L Corrected Calcium 7.8 L Magnesium 1.4 L Total Bilirubin 0.3 AST 285 H ALT 42 Alkaline Phosphatase 108 D Total Protein 5.1 L Albumin 3.0 L Globulin 2.1 L Albumin/Globulin Ratio 1.4 Stool for White Cells Stl C. diff Tox B Gene Misc Test Result Platelets confirmed ABG Interpretation ABG results: 07/20/24 11:12 VBG pH 7.27 L VBG pCO2 33 L VBG pO2 38 VBG Base Excess -11 L Quality Measures Quality Measures sepsis Current suspected stage: sepsis Possible source: genitourinary Blood cultures ordered: completed in ED Antibiotic ordered: Yes Assessment & Plan Assessment Current Active Medications: Generic Name Dose Route Start Last Admin Trade Name Freq PRN Reason Stop Dose Admin Acetaminophen 650 mg 07/20/24 11:49 07/21/24 01:37 Acetaminophen 325 Mg Tablet PO 08/19/24 11:48 650 mg Q6H PRN Administration Fever >101.5 Dextrose 25 ml 07/20/24 14:11 Dextrose 50%-Water Inj 50 Ml Syringe IV 08/19/24 14:10 Q15MIN PRN BG 50-70 responsive npo pt Dextrose 50 ml 07/20/24 14:11 07/21/24 11:50 Dextrose 50%-Water Inj 50 Ml Syringe IV 08/19/24 14:10 50 ml Q15MIN PRN Administration BG <50 OR BG <70 & pt unresponsive Fluconazole 400 mg 07/20/24 15:30 07/21/24 11:41 Fluconazole 100 Mg Tablet PO 07/27/24 15:29 400 mg QDAY YISSEL Administration Glucagon 1 mg 07/20/24 14:11 Glucagon Inj 1 Mg Vial IM Q15MIN PRN BG <70, and no IV access Heparin Sodium (Porcine) 5,000 unit 07/20/24 14:30 07/21/24 05:16 Heparin Sod Inj 5000 Unit/Ml Vial SC 08/03/24 14:29 5,000 unit Q8HR YISSEL Administration Norepinephrine/Dextrose 8 mg in 250 mls @ 5.036 mls/hr 07/20/24 12:41 07/21/24 11:21 Levophed In D5w 8mg/250ml IV 08/19/24 12:40 0.11 mcg/kg/min .Q24H PRN 11.08 mls/hr PER PROTOCOL Titration Protocol 0.05 MCG/KG/MIN Piperacillin/Tazobactam/Dextrose 50 mls @ 12.5 mls/hr 07/21/24 14:00 Zosyn IV 07/27/24 13:59 Q8HR YISSEL Insulin Glargine 5 unit 07/20/24 21:00 07/20/24 21:41 Insulin Glargine (Lantus) 5 Unit/0.05 Ml (Per 5 Units) SC 08/19/24 20:59 5 unit HS YISSEL Administration Insulin Human Lispro 0 unit 07/21/24 00:00 07/21/24 11:56 Insulin Lispro (Admelog) 1 Unit/0.01 Ml Unit SC 08/20/24 00:00 Not Given Q6HR [facility] Protocol Ondansetron HCl 4 mg 07/20/24 11:49 07/21/24 01:37 Ondansetron Inj 2 Mg/Ml Inj 2 Ml IV 08/19/24 11:48 4 mg Q6H PRN Administration NAUSEA OR VOMITING Protocol Pantoprazole Sodium 40 mg 07/20/24 14:30 07/21/24 09:15 Pantoprazole Inj 40 Mg Vial IV 08/19/24 14:29 40 mg QDAY YISSEL Administration Sennosides 1 tab 07/20/24 11:49 Senna Tablet PO 08/19/24 11:48 QDAY PRN constipation Protocol Plan 29-year-old female with past medical history of gestational diabetes mellitus, recurrent urinary tract infection was 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 [employer] Stable CVS # Shock most likely septic in the setting of pyelonephritis, versus hypovolemic given the history of diarrhea and not responding to fluid resuscitation, -on levophed, titrate as tolerates -Follow urine culture, blood culture grew GNR -Continue Zosyn for now, RESPI Chest xray- mild vascular congestion, physical exam benign, patient denies any shortness of breath, saturating in room air GI # Diarrhea -iv fluids give , -She did not had any new episode in the hospital -we will follow up urine culture -CT was ordered, will follow-up with the results -Protonix ENDO # New onset Diabetes mellitus # History of gestational diabetes mellitus -She had a history of diabetes mellitus after that she never followed, A1c today came back at 14 -Started on lisulin sliding scale -Insulin Glargine 5 sq hs ., Blood sugar is well-controlled, -hypoglycemia protocol in place ID # Severe sepsis secondary to emphysematous pyelonephritis and bacteremia #GNR bacteremia #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 Overall favor emphysematous pyelitis, though degree of inflammation and lack of IV contrast makes developing emphysematous pyelonephritis difficult to exclude.2. Interstitial thickening with right greater than left multilobar airspace opacities, along with trace right pleural effusion.3. Early atherosclerotic changes and near complete fatty replacement of the pancreatic body and tail. Query history of metabolic versus congenital syndromes, including uncontrolled diabetes mellitus. -Continue Zosyn, follow-up with urine culture -Given the improvement, we will hold off on nephrostomy tube placement for now, continue current management RENAL #SHANTI most likely prerenal in the setting of dehydration versus renal due to pyelonephritis #Emphysematous pyelonephritis -Creatinine improved after IVF -Will follow-up CMP in the afternoon. -Will continue to monitor Hematology #Anemia most likely hemodilutional, #Thrombocytopenia, DDx would include heparin-induced versus in the setting GNR bacteremia, however no signs of symptoms of acute bleeding -Will continue closely monitor Disposition: ICU in the setting of septic shock requiring pressors DVT prophylaxis: Heparin GI prophylaxis: Protonix Diet: Sip of water and ice chips for now Lines: PIV CODE STATUS:Full code Patient care was discussed with attending physician Dr. Edinson Arizmendi MD PGY-2 Attending Provider Attestation/Addendum Patient seen and examined. Discussed with resident team. In brief this is a 29-year-old female admitted to the ICU for septic shock. This is felt to be secondary to UTI and pyelonephritis. CT was suggestive of emphysematous pyelonephritis and she was started on Zosyn as well as fluconazole. Cultures have since resulted in a gram-negative jaylyn in the blood and E. coli which is pansensitive in the urine. She still complains of significant nausea and vomiting as well as multiple loose stools. C. difficile was sent. She complains of abdominal pain. On exam she is generally ill-appearing with a normal body habitus. Lungs are clear to auscultation heart rate regular and rhythmic, abdomen with discomfort on palpation, bowel sounds present, voluntary guarding. Moves all 4 extremities. She is currently still requiring Levophed for her blood pressure however vasopressor requirements are beginning to trend downward. Patient is Citizen [place]-speaking and all of her questions were answered in [place]. Patient also has new onset diabetes. Apparently she had a history of gestational diabetes however was not aware of a formal diagnosis of diabetes prior to her arrival. She has been started on ice chips and sips of clears. Case discussed with ICU team Labs, imaging and records reviewed ~45ccmin required for eval, exam, review, intervention, discussion and formulation of POC for this critically ill pt with septic shock at high risk for further and ongoing decompensation.
[2024-07-21] MEDS: PIPER/TAZO 3.375 GM PREMIX 50 ML IV ×2 (14:28→22:06)
[2024-07-21] MEDS: Norepinephrine/D5W 8mg/250ml 8 MG/250 ML BAG 5.036 MG IV (16:40)
[2024-07-21] MEDS: RINGERS LACTATED 1000 ML 1,000 ML 999 ML IV (17:30)
[2024-07-21] MEDS: Magnesium Sulfate 4 GM Ivpb 4 GM/50 ML BAG IV (20:31)
[2024-07-22] VITALS (58 sets, daily range): BP systolic 81–138; BP diastolic 49–78; PULSE 80–107; RESP 9–99; TEMP 36.8–38.1; O2SAT 95–100
[2024-07-22 05:04] LABS: Lactate (Lactic Acid) 1.1 mMol/L (0.4-2.0)
[2024-07-22 05:16] LABS: Basophils % (Auto) 1 % (0-2.5); Eosinophils % (Auto) 0 % (0-10); Hematocrit 29.4 % (36.0-46.0); Hemoglobin 9.7 g/dL (12.0-16.0); Immature Granulocytes % (Auto) 4 % (0-0); Immature Granulocytes Auto 0.29 Thou/mm3 (0.00-0.00); Lymphocytes % (Auto) 13 % (10-50); Mean Corpuscular Hemoglobin 29.2 pg (25.0-35.0); Mean Corpuscular Volume 89 fL (80-100); Monocytes # (Auto) 0.3 Thou/mm3 (0.0-0.8); Monocytes % (Auto) 4 % (0-12); Neutrophils # (Auto) 6.3 Thou/mm3 (1.8-7.7); Neutrophils % (Auto) 79 % (37-80); Nucleated Red Blood Cell % 0 /100 WBC (0); RDW Standard Deviation 43.3 fL (36.4-46.3); Red Blood Count 3.32 Miln/mm3 (4.00-5.20); White Blood Count 7.9 Thou/mm3 (3.6-11.0)
[2024-07-22 05:17] LABS: Platelet Count 39 Thou/mm3 (140-440)
[2024-07-22] MEDS: PIPER/TAZO 3.375 GM PREMIX 50 ML IV (05:49)
[2024-07-22] MEDS: DEXTROSE 50%-WATER INJ 50 ML SYRINGE IV (05:54)
[2024-07-22 06:23] LABS: Slide Review Platelets confirmed
[2024-07-22 06:42] LABS: Alanine Aminotransferase 33 U/L (10-49); Albumin, Serum 2.9 gm/dL (3.5-5.0); Albumin/Globulin Ratio 1.3 (1.2-2.2); Anion Gap 13 (7-16); Aspartate Amino Transferase 86 U/L (0-34); BUN/Creatinine Ratio 15 Ratio (12-20); Bilirubin,Total 0.5 mg/dL (0.3-1.2); Blood Urea Nitrogen 40 mg/dL (9-23); Calcium 7.5 mg/dL (8.3-10.6); Calcium (Corrected) 8.4 mg/dL (8.5-10.1); Chloride 113 mMol/L (98-107); Creatinine (Component) 2.6 mg/dL (0.6-1.3); Estimated Creatinine Clearance 27.6 mL/min (>60); Globulin 2.2 gm/dL (2.3-3.5); Glucose 51 mg/dL (74-106); Magnesium 2.9 mg/dL (1.6-2.6); Osmolality,Calculated 287 (275-295); Phosphorous 2.5 mg/dL (2.4-5.1); Sodium 141 mMol/L (136-145); Total Protein 5.1 gm/dL (5.7-8.2); eGFR 25 See Note
[2024-07-22 06:43] LABS: Alkaline Phosphatase 138 U/L (46-116)
[2024-07-22 06:56] LABS: Potassium 2.7 mMol/L (3.4-5.1)
[2024-07-22 06:57] LABS: Carbon Dioxide 14.6 mMol/L (20.0-31.0)
[2024-07-22] MEDS: POTASSIUM CHLORIDE 20 mEq TABCR 40 MEQ PO ×3 (07:33→20:52)
[2024-07-22] MEDS: RINGERS LACTATED 1000 ML 1,000 ML 999 ML IV (07:34)
[2024-07-22] MEDS: POTASSIUM CHLORIDE 20 mEq TABCR PO (07:34)
[2024-07-22 08:07] LABS: Base Excess -11 (-3-3); HCO3 13 mEq/L (20-26); Inspired Oxygen, FIO2 21 %; O2 Saturation 98 % (91-98); PCO2 25 mmHg (32.0-48.0); PO2 96 mmHg (83-108); pH, Arterial 7.35 (7.35-7.45)
[2024-07-22 08:09] LABS: Allen Test Performed/OK; Puncture Site Right Radial
--- NOTE | 2024-07-22 08:28 | PD.INTPROG ---
Documentation for date of: 07/22/24 Subjective Subjective Interval history: This is a 29-year-old female admitted to the ICU for septic shock. Her urine grew out an E. coli and blood cultures are positive. She received 5 to 6 L of IV fluids in the ER and was persistently hypotensive. She was started on Levophed and brought to the ICU. Her vasopressor requirements are trending back down. She is still currently on Levophed. She states that she feels better than on arrival. Blood cultures show gram-negative rods 2 out of [address] also showed pyelonephritis. Initially presented with significant nausea and vomiting along with multiple episodes diarrhea. She currently still complains of diarrhea with very loose stools and approximately 5 bowel movements overnight however somewhat improved from arrival. Still remains nauseous however just 1 episode of emesis. States that her abdominal pain is improving Critical Care Note Critical care time (min.): 40 Exam Vital Signs Temp Pulse Resp BP Pulse Ox O2 Del Method O2 Flow Rate 100.6 F H 90 23 H 97/64 97 Room Air 2 07/22/24 04:00 07/22/24 07:00 07/22/24 07:00 07/22/24 07:00 07/22/24 07:00 07/22/24 04:00 07/20/24 17:06 Narrative Exam General-no acute distress though vaguely ill-appearing, awake alert and oriented, normal body habitus HEENT-normocephalic, atraumatic, sclera icteric, oral mucosa slightly dry Chest-lungs clear to auscultation bilaterally, heart regular rhythmic, no bruits murmurs auscultated times exam, no pain on palpation of chest wall Abdomen-generalized discomfort on deep palpation, no rebound, no guarding, no palpable organomegaly Extremities-no edema, pulses palpable, no clubbing or cyanosis, moves all 4 extremities Drips Levophed Physical Exam Completion Physical Exam Complete?: Yes Objective - [employer] Folder Labs 07/24/24 05:26 07/24/24 05:26 Labs: Laboratory Results - last 24 hr 07/21/24 07/21/24 07/21/24 00:00 04:35 05:00 WBC RBC Hgb Hct MCV MCH MCHC RDW Std Deviation Plt Count Neut % (Auto) Lymph % (Auto) [place]ick[place] % (Auto) Eos % (Auto) Baso % (Auto) Neut # (Auto) Lymph # (Auto) [place] # (Auto) Eos # (Auto) Baso # (Auto) Immature Gran # (Auto) Absolute Nucleated RBC Immature Gran % Neutrophils % (Manual) 58 Monocytes % (Manual) 5 Metamyelocytes % 5 H Nucleated RBC % Band Neutrophils 26 H Lymphocytes (Manual) 6 L PT 13.7 H INR 1.3 Puncture Site ABG pH ABG pCO2 ABG pO2 ABG HCO3 ABG O2 Saturation ABG Base Excess FiO2 Sodium Potassium Chloride Carbon Dioxide Anion Gap BUN Creatinine Estim Creat Clear Calc eGFR BUN/Creatinine Ratio Glucose Calculated Osmolality Lactic Acid Calcium Corrected Calcium Phosphorus Magnesium Total Bilirubin AST ALT Alkaline Phosphatase Total Protein Albumin Globulin Albumin/Globulin Ratio Stl C. diff Tox B Gene Negative Misc Test Result 07/22/24 07/22/24 04:45 07:59 WBC 7.9 RBC 3.32 L Hgb 9.7 L Hct 29.4 L MCV 89 MCH 29.2 MCHC 33.0 RDW Std Deviation 43.3 Plt Count 39 L D Neut % (Auto) 79 Lymph % (Auto) 13 [place]ickman % (Auto) 4 Eos % (Auto) 0 Baso % (Auto) 1 Neut # (Auto) 6.3 Lymph # (Auto) 1.0 Hickman # (Auto) 0.3 Eos # (Auto) 0.0 Baso # (Auto) 0.0 Immature Gran # (Auto) 0.29 H Absolute Nucleated RBC 0.00 Immature Gran % 4 H Neutrophils % (Manual) Monocytes % (Manual) Metamyelocytes % Nucleated RBC % 0 Band Neutrophils Lymphocytes (Manual) PT INR Puncture Site Right Radial ABG pH 7.35 ABG pCO2 25 L ABG pO2 96 ABG HCO3 13 L ABG O2 Saturation 98 ABG Base Excess -11 L FiO2 21 Sodium 141 Potassium 2.7 L* D Chloride 113 H Carbon Dioxide 14.6 L* Anion Gap 13 BUN 40 H Creatinine 2.6 H Estim Creat Clear Calc 27.6 L eGFR 25 L BUN/Creatinine Ratio 15 Glucose 51 L Calculated Osmolality 287 Lactic Acid 1.1 Calcium 7.5 L Corrected Calcium 8.4 L Phosphorus 2.5 Magnesium 2.9 H Total Bilirubin 0.5 AST 86 H ALT 33 Alkaline Phosphatase 138 H D Total Protein 5.1 L Albumin 2.9 L Globulin 2.2 L Albumin/Globulin Ratio 1.3 Stl C. diff Tox B Gene Misc Test Result Platelets confirmed Assessment & Plan Additional Plan Additional Plan: In brief this is a 29-year-old female admitted to the ICU for septic shock secondary to pyelonephritis and UTI as well as uncontrolled newly diagnosed diabetes a/p [employer] Stable CV Septic shock-currently on Levophed, has received several liters of IV fluids since arrival. Given her ongoing diarrhea and lack of p.o. intake we will give an additional liter of LR today. Blood cultures are positive with gram-negative rods however awaiting further speciation. Resp Stable Renal Pyelonephritis- on abx Hypokalemia-patient likely has ongoing GI losses, will replete aggressively this a.m. and recheck in the evening Metabolic acidosis-and ABG was obtained this morning and patient appears to have inappropriate respiratory compensation. At this point in time it is felt to be a hyperchloremic nongap acidosis. Patient did have a lactic acidosis earlier in her stay however this is resolved Hypocalcemia-replete Acute kidney injury-patient's creatinine appears to have plateaued and is now trending back down, maintains good urinary output GI Hypoalbuminemia-was within normal range on presentation, the patient has received several liters of IV fluids. Currently felt that drop in albumin is dilutional in nature. However given her acute kidney injury we will also check a protein creatinine ratio Endo Diabetes-this appears to be new onset, the patient did have an episode of hypoglycemia overnight and was given an amp of D50. It is noted that she is on Lantus however has very poor p.o. intake at this point in time. Heme Thrombocytopenia-patient has had ongoing drop in her platelets from arrival question of this is secondary to sepsis versus drug-related -Stop heparin and switch to Lovenox -Change Zosyn to ceftriaxone Anemia-slight trend down however felt to be dilutional Leukocytosis-currently trended back down to within normal range DVT prophylaxis-switch heparin to Lovenox ID UTI/pyelonephritis-on Zosyn which will be changed to ceftriaxone today Case discussed with ICU team Labs, imaging and records reviewed ~40ccmin required for eval, exam, review, intervention, discussion and formulation of POC for this critically ill pt with septic shock on vasopressors Provider Notation Provider Notation: Although this document has been carefully reviewed, there may still be some phonetic and other typographical errors. These errors are purely grammatical due to imperfections in the software program and should not be construed in any way to compromise the substance of the patient's medical care during this visit. Thank you for the opportunity and privilege in assisting you with this patient's care and management.
[2024-07-22] MEDS: PANTOPRAZOLE INJ 40 MG VIAL IV (09:12)
[2024-07-22] MEDS: FLUCONAZOLE 100 MG TABLET 400 MG PO (09:12)
[2024-07-22 10:32] LABS: Creatinine,Random Urine 29 mg/dL (30-125); Protein Total, Random Urine 67 mg/dL (1-14)
--- NOTE | 2024-07-22 11:02 | ESPR_ITS ---
Documentation for date of: 07/22/24 Subjective Subjective Interval history: Patient was seen and examined. Overnight patient spiked fever, was given Tylenol, currently afebrile. Otherwise patient is having adequate urine output, kidney function slightly improved down from 2.9-2.6. Urine culture growth GNR, blood culture grew GNR. Previous cultures was positive for E. coli, Zosyn was switched to ceftriaxone, leukocytosis resolved, CBC revealed thrombocytopenia of 39, heparin was held overnight, we will continue with the Lovenox low-dose daily daily. Further labs revealed hypokalemia, which was replaced, hypoalbuminemia most likely secondary due to malnutrition as patient was n.p.o. for the last couple of days, versus hemodilutional, patient will be started on clear fluid diet. Will try to work patient today, patient is off pressors, blood pressure is well-controlled, responded to fluid challenge., Patient is currently stable to be transferred to floors. Exam Vital Signs Temp Pulse Resp BP Pulse Ox O2 Del Method O2 Flow Rate 98.5 F 87 18 114/75 100 Room Air 2 07/22/24 08:00 07/22/24 11:00 07/22/24 11:00 07/22/24 11:00 07/22/24 11:00 07/22/24 08:00 07/20/24 17:06 Narrative Exam GENERAL: no acute distress, AAO x3, well nourished. [place]anian-speaking HEENT: Head AT/ NC. Mucous membranes moist. PERRL. NECK: Supple, no lymphadenopathy, no carotid bruits. CARDIOVASCULAR: RRR. Normal S1/S2, No m/r/g. No pitting edema of bilateral LEs. RESPIRATORY: CTAB. No wheezing, rhonchi, crackles. GASTROINTESTINAL: Abdomen soft, non tender no palpable masses. Bowel sounds present in all 4 quadrants. Longitudinal scar from was noted MUSCULOSKELETAL:? No cyanosis or edema, no visible joint swelling. NEUROLOGICAL: CN II-XII grossly intact. No focal deficits. Sensation intact, symmetric. PSYCHIATRIC: Awake and alert, not agitated, normal mood and affect. INTEGUMENTARY: No obvious rashes, no jaundice, normal turgor. Objective Labs 07/22/24 04:45 07/22/24 04:45 Labs: Laboratory Results - last 24 hr 07/22/24 07/22/24 07/22/24 04:45 07:59 09:41 WBC 7.9 RBC 3.32 L Hgb 9.7 L Hct 29.4 L MCV 89 MCH 29.2 MCHC 33.0 RDW Std Deviation 43.3 Plt Count 39 L D Neut % (Auto) 79 Lymph % (Auto) 13 [place] % (Auto) 4 Eos % (Auto) 0 Baso % (Auto) 1 Neut # (Auto) 6.3 Lymph # (Auto) 1.0 [place] # (Auto) 0.3 Eos # (Auto) 0.0 Baso # (Auto) 0.0 Immature Gran # (Auto) 0.29 H Absolute Nucleated RBC 0.00 Immature Gran % 4 H Nucleated RBC % 0 Puncture Site Right Radial ABG pH 7.35 ABG pCO2 25 L ABG pO2 96 ABG HCO3 13 L ABG O2 Saturation 98 ABG Base Excess -11 L FiO2 21 Sodium 141 Potassium 2.7 L* D Chloride 113 H Carbon Dioxide 14.6 L* Anion Gap 13 BUN 40 H Creatinine 2.6 H Estim Creat Clear Calc 27.6 L eGFR 25 L BUN/Creatinine Ratio 15 Glucose 51 L Calculated Osmolality 287 Lactic Acid 1.1 Calcium 7.5 L Corrected Calcium 8.4 L Phosphorus 2.5 Magnesium 2.9 H Total Bilirubin 0.5 AST 86 H ALT 33 Alkaline Phosphatase 138 H D Total Protein 5.1 L Albumin 2.9 L Globulin 2.2 L Albumin/Globulin Ratio 1.3 Ur Random Creatinine 29 L U Random Total Protein 67 H Misc Test Result Platelets confirmed ABG Interpretation ABG results: 07/20/24 07/22/24 11:12 07:59 ABG pH 7.35 ABG pCO2 25 L ABG pO2 96 ABG HCO3 13 L ABG O2 Saturation 98 ABG Base Excess -11 L VBG pH 7.27 L VBG pCO2 33 L VBG pO2 38 VBG Base Excess -11 L Quality Measures Quality Measures sepsis Current suspected stage: sepsis Possible source: genitourinary Blood cultures ordered: completed in ED Antibiotic ordered: Yes Assessment & Plan Assessment Current Active Medications: Generic Name Dose Route Start Last Admin Trade Name Freq PRN Reason Stop Dose Admin Acetaminophen 650 mg 07/20/24 11:49 07/21/24 01:37 Acetaminophen 325 Mg Tablet PO 08/19/24 11:48 650 mg Q6H PRN Administration Fever >101.5 Dextrose 25 ml 07/20/24 14:11 Dextrose 50%-Water Inj 50 Ml Syringe IV 08/19/24 14:10 Q15MIN PRN BG 50-70 responsive npo pt Dextrose 50 ml 07/20/24 14:11 07/22/24 05:54 Dextrose 50%-Water Inj 50 Ml Syringe IV 08/19/24 14:10 50 ml Q15MIN PRN Administration BG <50 OR BG <70 & pt unresponsive Fluconazole 400 mg 07/20/24 15:30 07/22/24 09:12 Fluconazole 100 Mg Tablet PO 07/27/24 15:29 400 mg QDAY YISSEL Administration Glucagon 1 mg 07/20/24 14:11 Glucagon Inj 1 Mg Vial IM Q15MIN PRN BG <70, and no IV access Heparin Sodium (Porcine) 5,000 unit 07/20/24 14:30 07/22/24 05:44 Heparin Sod Inj 5000 Unit/Ml Vial SC 08/03/24 14:29 Not Given Q8HR [facility] Norepinephrine/Dextrose 8 mg in 250 mls @ 5.036 mls/hr 07/20/24 12:41 07/22/24 06:00 Levophed In D5w 8mg/250ml IV 08/19/24 12:40 0.01 mcg/kg/min .Q24H PRN 1.007 mls/hr PER PROTOCOL Titration Protocol 0.05 MCG/KG/MIN Piperacillin/Tazobactam/Dextrose 50 mls @ 12.5 mls/hr 07/21/24 14:00 07/22/24 05:49 Zosyn IV 07/27/24 13:59 12.5 mls/hr Q8HR YISSEL Administration Insulin Glargine 5 unit 07/20/24 21:00 07/21/24 19:28 Insulin Glargine (Lantus) 5 Unit/0.05 Ml (Per 5 Units) SC 08/19/24 20:59 Not Given HS [facility] Insulin Human Lispro 0 unit 07/21/24 00:00 07/22/24 05:53 Insulin Lispro (Admelog) 1 Unit/0.01 Ml Unit SC 08/20/24 00:00 Not Given Q6HR [facility] Protocol Ondansetron HCl 4 mg 07/20/24 11:49 07/21/24 23:57 Ondansetron Inj 2 Mg/Ml Inj 2 Ml IV 08/19/24 11:48 4 mg Q6H PRN Administration NAUSEA OR VOMITING Protocol Pantoprazole Sodium 40 mg 07/20/24 14:30 07/22/24 09:12 Pantoprazole Inj 40 Mg Vial IV 08/19/24 14:29 40 mg QDAY YISSEL Administration Sennosides 1 tab 07/20/24 11:49 Senna Tablet PO 08/19/24 11:48 QDAY PRN constipation Protocol Plan 29-year-old female with past medical history of gestational diabetes mellitus, recurrent urinary tract infection was admitted for sepsis secondary due to emphysematous pyelonephritis and bacteremia COLORER HIDES AND SKINS Stable CVS # Shock most likely septic in the setting of bacteremia versus hypovolemic given the history of diarrhea-resolved -Levophed weaned off -Patient had a [place]et[place], which revealed fluid responsiveness, received 2 L of LR since yesterday -Blood culture revealed GNR, urine culture revealed E. coli, sensitive to ceftriaxone, Zosyn was switched to ceftriaxone -Continue IVF and antibiotics -Monitor urine output RESPI Chest xray- mild vascular congestion, physical exam benign, patient denies any shortness of breath, saturating in room air GI #Diarrhea #Hypoalbuminemia most likely in the setting of hemodilution versus malnutrition C. difficile is negative -Will restart clear liquid diet -Follow-up with stool cultures -Continue current management ENDO # New onset Diabetes mellitus # History of gestational diabetes mellitus -She had a history of diabetes mellitus after that she never followed, A1c today came back at 14 -Started on lisulin sliding scale -Insulin Glargine 5 sq hs ., Blood sugar is well-controlled, -hypoglycemia protocol in place ID #Severe sepsis secondary to emphysematous pyelonephritis and bacteremia #GNR bacteremia #Emphysematous pyelonephritis #Leukocytosis improving CT abdomen and pelvis- Inflammatory changes surrounding the genitourinary system, most severe about the left kidney, which demonstrates moderate hydronephrosis and air primarily located in the collecting system. Overall favor emphysematous pyelitis, though degree of inflammation and lack of IV contrast makes developing emphysematous pyelonephritis difficult to exclude.2. Interstitial thickening with right greater than left multilobar airspace opacities, along with trace right pleural effusion.3. Early atherosclerotic changes and near complete fatty replacement of the pancreatic body and tail. Query history of metabolic versus congenital syndromes, including uncontrolled diabetes mellitus. Patient has a recurrent history of urinary tract infection with E. coli UA was positive for UTI She received 6 L of fluid in the ED (4 NS, 2 LR) -levophed started for pressure support, completely weaned off today -LA- 4.1 on admission-resolved -Blood culture showed GNR, urine culture E. coli -Follow-up with the final blood culture result, antibiotic was de-escalated from Zosyn to ceftriaxone RENAL #SHANTI most likely prerenal in the setting of dehydration versus renal due to pyelonephritis #Emphysematous pyelonephritis # Hypokalemia most likely secondary due to diarrhea- repleted #Hyperchloremic metabolic acidosis in the setting of multiple NS boluses #Hypocalcemia most likely secondary due to hemodilution -Creatinine improving, down from 2.9-2.6 -Patient is having adequate urine output -Discontinue Gray -Continue to monitor renal function Hematology #Anemia most likely hemodilutional, #Thrombocytopenia, DDx would include heparin-induced versus in the setting GNR bacteremia, however no signs of symptoms of acute bleeding -Zosyn was discontinued, heparin is on hold, -We restarted low-dose of Lovenox 30 daily Disposition: ICU in the setting of septic shock requiring pressors DVT prophylaxis: Lovenox 30 daily GI prophylaxis: Protonix Diet: Clear liquid diet Lines: PIV CODE STATUS:Full code Patient care was discussed with attending physician Dr. Edinson Arizmendi MD PGY-2
[2024-07-22] MEDS: cefTRIAXone 1,000 MG in SODIUM CHLORIDE 0.9% (Popper) 50 ML 100 MG IV (11:27)
--- NOTE | 2024-07-22 12:16 | PC.SS ---
Update: Patient is on room air. Not receiving pressor support. P.O. feeds. Plan is to downgrade patient today.
[2024-07-22 13:11] LABS: Potassium 3.2 mMol/L (3.4-5.1)
--- NOTE | 2024-07-22 13:50 | ESPR_ITS ---
<Statement entered by Lara Guajardo MD - 07/23/24 07:49> Patient was seen and examined by me personally. I have directly supervised and reviewed documentation by the team resident and agree with its findings with any exceptions or additional findings as below. Plan of care was discussed with the attending, Dr. Martinez. ICU downgrade to Team B received today. Patient is a 29-year-old female with history of uncontrolled diabetes, newly diagnosed (A1c 14.0) who was admitted to ICU for septic shock secondary to pyelonephritis requiring pressor support. Patient has been off pressors since 7 am this morning and will continue on IV ceftriaxone for pansensitive E. coli. Lara Guajardo, PGY-2 Documentation for date of: 07/22/24 Subjective Subjective Interval history: She reports that approximately a week ago, she started having loose stools and also sterted to have flank pain, dysuria and fever, chills. She was admitted to the ICU due to septic shock, requiring pressor support. After starting antibiotics and fluids, her condition improved, she became hemodynamically stable. She also developed SHANTI, but continues to have good urine output. Patient has been downgraded from the ICU. Team B to assume care starting 07/22/2024. Patient was seen and examined by the bedside. Resting comfortably in the bed. She denies dysuria, flank pain, costovertebral angle tenderness is appreciated. She reports having loose stools. Exam Vital Signs Temp Pulse Resp BP Pulse Ox O2 Del Method O2 Flow Rate 98.5 F 97 23 H 97/67 99 Room Air 2 07/22/24 12:01 07/22/24 12:01 07/22/24 12:01 07/22/24 12:01 07/22/24 12:07/22/24 12:07/20/24 17:06 Narrative Exam Physical Exam General: Awake and in no acute distress. Conversational and non-toxic appearing. HEENT: Normocephalic, atraumatic, mucous membranes moist. Heart: Regular rate and rhythm, no murmurs. Lungs: Clear to auscultation with no wheezing or crackles. Abdomen: Soft, nondistended, nontender, positive bowel sounds. ?No guarding or rebound tenderness. Mild CVA tenderness. Neurologic: Alert and oriented x3, no gross neurological deficit, and patient able to move all 4 extremities. Extremities: No edema. Skin: No rash or ecchymoses. Objective Labs 07/23/24 05:25 07/23/24 05:25 Labs: Laboratory Results - last 24 hr 07/22/24 07/22/24 07/22/24 04:45 07:59 09:41 WBC 7.9 RBC 3.32 L Hgb 9.7 L Hct 29.4 L MCV 89 MCH 29.2 MCHC 33.0 RDW Std Deviation 43.3 Plt Count 39 L D Neut % (Auto) 79 Lymph % (Auto) 13 [place] % (Auto) 4 Eos % (Auto) 0 Baso % (Auto) 1 Neut # (Auto) 6.3 Lymph # (Auto) 1.0 [place] # (Auto) 0.3 Eos # (Auto) 0.0 Baso # (Auto) 0.0 Immature Gran # (Auto) 0.29 H Absolute Nucleated RBC 0.00 Immature Gran % 4 H Nucleated RBC % 0 Puncture Site Right Radial ABG pH 7.35 ABG pCO2 25 L ABG pO2 96 ABG HCO3 13 L ABG O2 Saturation 98 ABG Base Excess -11 L FiO2 21 Sodium 141 Potassium 2.7 L* D Chloride 113 H Carbon Dioxide 14.6 L* Anion Gap 13 BUN 40 H Creatinine 2.6 H Estim Creat Clear Calc 27.6 L eGFR 25 L BUN/Creatinine Ratio 15 Glucose 51 L Calculated Osmolality 287 Lactic Acid 1.1 Calcium 7.5 L Corrected Calcium 8.4 L Phosphorus 2.5 Magnesium 2.9 H Total Bilirubin 0.5 AST 86 H ALT 33 Alkaline Phosphatase 138 H D Total Protein 5.1 L Albumin 2.9 L Globulin 2.2 L Albumin/Globulin Ratio 1.3 Ur Random Creatinine 29 L U Random Total Protein 67 H Misc Test Result Platelets confirmed 07/22/24 12:32 WBC RBC Hgb Hct MCV MCH MCHC RDW Std Deviation Plt Count Neut % (Auto) Lymph % (Auto) [place] % (Auto) Eos % (Auto) Baso % (Auto) Neut # (Auto) Lymph # (Auto) [place] # (Auto) Eos # (Auto) Baso # (Auto) Immature Gran # (Auto) Absolute Nucleated RBC Immature Gran % Nucleated RBC % Puncture Site ABG pH ABG pCO2 ABG pO2 ABG HCO3 ABG O2 Saturation ABG Base Excess FiO2 Sodium Potassium 3.2 L D Chloride Carbon Dioxide Anion Gap BUN Creatinine Estim Creat Clear Calc eGFR BUN/Creatinine Ratio Glucose Calculated Osmolality Lactic Acid Calcium Corrected Calcium Phosphorus Magnesium Total Bilirubin AST ALT Alkaline Phosphatase Total Protein Albumin Globulin Albumin/Globulin Ratio Ur Random Creatinine U Random Total Protein Misc Test Result ABG Interpretation ABG results: 07/20/24 07/22/24 11:12 07:59 ABG pH 7.35 ABG pCO2 25 L ABG pO2 96 ABG HCO3 13 L ABG O2 Saturation 98 ABG Base Excess -11 L VBG pH 7.27 L VBG pCO2 33 L VBG pO2 38 VBG Base Excess -11 L Quality Measures Quality Measures sepsis Current suspected stage: sepsis Possible source: genitourinary Blood cultures ordered: completed in ED Antibiotic ordered: Yes Assessment & Plan Assessment Current Active Medications: Generic Name Dose Route Start Last Admin Trade Name Freq PRN Reason Stop Dose Admin Acetaminophen 650 mg 07/20/24 11:49 07/21/24 01:37 Acetaminophen 325 Mg Tablet PO 08/19/24 11:48 650 mg Q6H PRN Administration Fever >101.5 Dextrose 25 ml 07/20/24 14:11 Dextrose 50%-Water Inj 50 Ml Syringe IV 08/19/24 14:10 Q15MIN PRN BG 50-70 responsive npo pt Dextrose 50 ml 07/20/24 14:11 07/22/24 05:54 Dextrose 50%-Water Inj 50 Ml Syringe IV 08/19/24 14:10 50 ml Q15MIN PRN Administration BG <50 OR BG <70 & pt unresponsive Enoxaparin Sodium 30 mg 07/22/24 11:00 Enoxaparin Sod Inj 30 Mg/0.3 Ml Syringe SC 08/05/24 10:59 QDAY YISSEL Fluconazole 400 mg 07/20/24 15:30 07/22/24 09:12 Fluconazole 100 Mg Tablet PO 07/27/24 15:29 400 mg QDAY YISSEL Administration Glucagon 1 mg 07/20/24 14:11 Glucagon Inj 1 Mg Vial IM Q15MIN PRN BG <70, and no IV access Ceftriaxone Sodium 1,000 mg/ 50 mls @ 100 mls/hr 07/22/24 10:55 07/22/24 11:27 Sodium Chloride IV 07/29/24 10:54 100 mls/hr QDAY YISSEL Administration Insulin Glargine 5 unit 07/20/24 21:00 07/21/24 19:28 Insulin Glargine (Lantus) 5 Unit/0.05 Ml (Per 5 Units) SC 08/19/24 20:59 Not Given HS YISSEL Insulin Human Lispro 0 unit 07/21/24 00:00 07/22/24 11:56 Insulin Lispro (Admelog) 1 Unit/0.01 Ml Unit SC 08/20/24 00:00 Not Given Q6HR YISSEL Protocol Ondansetron HCl 4 mg 07/20/24 11:49 07/21/24 23:57 Ondansetron Inj 2 Mg/Ml Inj 2 Ml IV 08/19/24 11:48 4 mg Q6H PRN Administration NAUSEA OR VOMITING Protocol Pantoprazole Sodium 40 mg 07/20/24 14:30 07/22/24 09:12 Pantoprazole Inj 40 Mg Vial IV 08/19/24 14:29 40 mg QDAY YISSEL Administration Potassium Chloride 40 meq 07/22/24 20:00 Potassium Chloride 20 Meq Tabcr PO 07/22/24 20:01 X1 ONE Sennosides 1 tab 07/20/24 11:49 Senna Tablet PO 08/19/24 11:48 QDAY PRN constipation Protocol Plan The patient is an 29-year-old female with past medical history of gestational diabetes mellitus, recurrent urinary tract infection was admitted for sepsis secondary due to emphysematous pyelonephritis and bacteremia #Complex UTI, improving #Emphysematous pyelonephritis, improving #GNR bacteremia #Septic shock, resolved Patient reports that approximately a week ago, she started having loose stools and also sterted to have flank pain, dysuria and fever, chills. Patient has a recurrent history of urinary tract infection with E. coli. She was admitted to the ICU due to septic shock, requiring pressor support. After starting antibiotics and fluids, her condition improved, she became hemodynamically stable. CT abdomen and pelvis- Inflammatory changes surrounding the genitourinary system, most severe about the left kidney, which demonstrates moderate hydronephrosis and air primarily located in the collecting system. Overall favor emphysematous pyelitis, though degree of inflammation and lack of IV contrast makes developing emphysematous pyelonephritis difficult to exclude.2. Interstitial thickening with right greater than left multilobar airspace opacities, along with trace right pleural effusion.3. Early atherosclerotic changes and near complete fatty replacement of the pancreatic body and tail. Query history of metabolic versus congenital syndromes, including uncontrolled diabetes mellitus. Blood culture revealed GNR, urine culture revealed E. coli, sensitive to ceftriaxone, Zosyn was switched to ceftriaxone Plan: - Ceftriaxone 07/22- current - Zosyn discontinued 07/22 - Monitor urine output #SHANTI, improving #Hypokalemia, improving #Hyperchloremic metabolic acidosis, resolved Most likely in the setting of multiple NS boluses #Hypocalcemia Most likely secondary due to hemodilution SHANTI most likely prerenal and intrarenal in the setting of septic shock, dehydration and pyelonephritis. Hypokalemia most likely due to GI loss. Discontinued Gray 07/22/24 07/22/24: Estimated 24 hour urinary protein excretion 2.3 g/day Elevated urinary protein. Investigate further. Plan: -Creatinine improving, down from 2.9-2.6 -Patient is having adequate urine output -Nephrology consulted -Continue to monitor daily CMP #Diarrhea #Hypoalbuminemia Most likely in the setting of hemodilution versus malnutrition C. difficile is negative Plan: -Clear liquid diet, will advance as tolerated -Stool cultures pending - banatrol started #New onset Diabetes mellitus #History of gestational diabetes mellitus She had a history of diabetes mellitus after that she never followed, A1c 14% Plan: -Insulin sliding scale with Accuchecks -Insulin Glargine 5 sq hs discontinued -hypoglycemia protocol in place -Diabetes education #Anemia #Thrombocytopenia Anemia most likely hemodilutional DDx: heparin-induced versus in the setting GNR bacteremia, No signs or symptoms of acute bleeding. -Zosyn was discontinued, heparin is on hold -Lovenox cancelled, SCDs Disposition: telemetry DVT prophylaxis: SCDs GI prophylaxis: Protonix Diet: Clear liquid diet Lines: PIV CODE STATUS:Full code Plan of care discussed with attending Dr. Martinez, PGY-[address] Guajardo and PGY-[address] Aldana. Joy Markham MD, PGY 1. Attending Provider Attestation/Addendum I reviewed labs, imaging, EKG, home medications and prior available records. Face to face evaluation was performed by me. I have personally examined the patient and discussed assessment and plan with the IM team. I reviewed the resident note and agree with the plan with exceptions as below. Septic shock Acute E. coli UTI New onset diabetes mellitus, likely type I/insulin-dependent SHANTI Thrombocytopenia She is off vasopressors Continue IV ceftriaxone Continue IV fluids Continue insulin therapy and monitor fingersticks Monitor kidney function: Creatinine is downtrending Avoid nephrotoxins. Renally dosed medications Monitor platelet level Monitor for bleeding Replete potassium as needed and follow-up BMP
--- NOTE | 2024-07-22 14:21 | ESCONSULT_ITS ---
HPI Data of Consult Consult date: 07/22/24 Requesting Physician: Melia Neves MD Admitting Provider: Navid Iverson MD Attending Provider: Melia Nevse MD Primary Care Provider: Janay Pichardo NP Consult Narrative Reason for consult: Acute kidney injury History of present illness: Patient is Colombian-speaking and interpreted with the help of cuff matcher Ms. Ham is a 29-year-old female with past medical history of gestational diabetes mellitus, recurrent urinary tract infection came to the hospital with chief complaint of back pain, vomitings, diarrhea since 2 days. Reported that she had left sided back pain radiating to the front of abdomen. Also noticed multiple episodes of vomitings associated with nausea, denies hematemesis and diarrheal episodes. Patient denied any febrile episodes, burning micturition, change in the color or frequency of urination. Endorsed that she did not follow-up with her gestational diabetes with PCP and never got any labs done since last . Denies similar complaints in the past ED Course: -Initial vitals were blood pressures 86/74 mmHg, pulse rate of 127 bpm, respiratory 36/min, temperature 99.4 ?F, SpO2 96% with room air -Labs significant for WBC 15.8, Hb 13.1, sodium 133, potassium 4, BUN 36, creatinine 3.6, glucose 404, AST 35, ALT 25, ALP 118, head CT negative -Urine analysis showed -Chest x-ray showed mild vascular congestion. CT abdomen/pelvis showed inflammatory changes surrounding the genitourinary system, most severe around left kidney that demonstrated moderate hydronephrosis and a primarily located within the collecting system. -Patient was admitted for sepsis secondary to pyelonephritis. Patient was initially admitted in the ICU because of hypotension and was treated with antibiotics, IV fluids, vasopressors. As the patient became clinically stable and weaned off vasopressor patient is downgraded to floors for further management. Nephrology was consulted for acute kidney injury secondary to pyelonephritis. cc:: cc: Melia Neves MD Review of Systems Review of Systems Narrative Review of Systems: Constitutional: No Weight Change, No Fever, No Chills, No Night Sweats, No Fatigue, No Malaise ENT/Mouth: No Hearing Changes, No Ear Pain, No Nasal Congestion, No Sinus Pain, No Hoarseness, No sore throat, No Rhinorrhea, No Swallowing Difficulty Eyes: No Eye Pain, No Swelling, No Redness, No Foreign Body, No Discharge, No Vision Changes Cardiovascular: No Chest Pain, No SOB, No PND, No Dyspnea on Exertion, No Orthopnea, No Edema, No Palpitations Respiratory: No Cough, No Sputum, No Wheezing, No Dyspnea Gastrointestinal: No Nausea, No Vomiting, No Diarrhea, No Constipation, No Pain, No Heartburn, No Anorexia, No Dysphagia, No Hematochezia, No Melena, No Flatulence, No Jaundice Genitourinary: No Dysuria, No Urinary Frequency, No Hematuria, No Urinary Incontinence, No Urgency, Flank Pain, No Urinary Flow Changes, No Hesitancy Musculoskeletal: No Arthralgias, No Myalgias, No Joint Swelling, No Joint Stiffness, No Back Pain, No Neck Pain, No Injury History Skin: No Skin Lesions, No Pruritis Neuro: No Weakness, No Numbness, No Paresthesias, No Loss of Consciousness, No Syncope, No Dizziness, No Headache, No Coordination Changes, No Recent Falls Exam Vital Signs Temp Pulse Resp BP Pulse Ox O2 Del Method O2 Flow Rate 98.5 F 97 23 H 97/67 99 Room Air 2 07/22/24 12:01 07/22/24 12:01 07/22/24 12:01 07/22/24 12:01 07/22/24 12:01 07/22/24 12:07/20/24 17:06 Narrative Exam General: Awake. HEENT: Normocephalic, atraumatic, mucous membranes moist. Heart: Regular rate and rhythm, no murmurs. Lungs: Clear to auscultation with no wheezing or crackles. Abdomen: Soft, nondistended, nontender, positive bowel sounds. ?No guarding or rebound tenderness. Tenderness noted in left lumbar area. Neurologic: Alert and oriented x3, no gross neurological deficit, and patient able to move all 4 extremities. Extremities: No edema. Skin: No rash or ecchymoses. Results Labs 07/22/24 04:45 07/22/24 12:32 Labs: Short CBC 07/22/24 Range/Units 04:45 WBC 7.9 (3.6-11.0) Thou/mm3 Hgb 9.7 L (12.0-16.0) g/dL Hct 29.4 L (36.0-46.0) % Plt Count 39 L D (140-440) Thou/mm3 BMP 07/22/24 07/22/24 04:45 12:32 Sodium 141 Potassium 2.7 L* D 3.2 L D Chloride 113 H Carbon Dioxide 14.6 L* BUN 40 H Creatinine 2.6 H Glucose 51 L Calcium 7.5 L Liver Function 07/22/24 Range/Units 04:45 Total Bilirubin 0.5 (0.3-1.2) mg/dL AST 86 H (0-34) U/L ALT 33 (10-49) U/L Alkaline Phosphatase 138 H D (46-116) U/L Albumin 2.9 L (3.5-5.0) gm/dL ABG Interpretation ABG results: 07/20/24 07/22/24 11:12 07:59 ABG pH 7.35 ABG pCO2 25 L ABG pO2 96 ABG HCO3 13 L ABG O2 Saturation 98 ABG Base Excess -11 L VBG pH 7.27 L VBG pCO2 33 L VBG pO2 38 VBG Base Excess -11 L Quality Measures Quality Measures sepsis Current suspected stage: ruled out Possible source: genitourinary Blood cultures ordered: completed in ED Antibiotic ordered: Yes Medications Home Medications and Allergies Allergies Allergy/AdvReac Type Severity Reaction Status Date / Time No Known Allergies Allergy Verified 07/20/24 08:16 Visit Medications Acetaminophen (Acetaminophen 325 Mg Tablet) 650 mg PO Q6H PRN PRN Reason: Fever >101.5 Stop: 08/19/24 11:48 Last Admin: 07/21/24 01:37 Dose: 650 mg Dextrose (Dextrose 50%-Water Inj 50 Ml Syringe) 25 ml IV Q15MIN PRN PRN Reason: BG 50-70 responsive npo pt Stop: 08/19/24 14:10 Dextrose (Dextrose 50%-Water Inj 50 Ml Syringe) 50 ml IV Q15MIN PRN PRN Reason: BG <50 OR BG <70 & pt unresponsive Stop: 08/19/24 14:10 Last Admin: 07/22/24 05:54 Dose: 50 ml Fluconazole (Fluconazole 100 Mg Tablet) 400 mg PO QDAY YISSEL Stop: 07/27/24 15:29 Last Admin: 07/22/24 09:12 Dose: 400 mg Glucagon (Glucagon Inj 1 Mg Vial) 1 mg IM Q15MIN PRN PRN Reason: BG <70, and no IV access Ceftriaxone Sodium 1,000 mg/ (Sodium Chloride) 50 mls @ 100 mls/hr IV QDAY [facility] Stop: 07/29/24 10:54 Last Admin: 07/22/24 11:27 Dose: 100 mls/hr Insulin Glargine (Insulin Glargine (Lantus) 5 Unit/0.05 Ml (Per 5 Units)) 5 unit SC HS [facility] Stop: 08/19/24 20:59 Last Admin: 07/21/24 19:28 Dose: Not Given Insulin Human Lispro (Insulin Lispro (Admelog) 1 Unit/0.01 Ml Unit) 0 unit SC Q6HR [facility]; Protocol Stop: 08/20/24 00:00 Last Admin: 07/22/24 11:56 Dose: Not Given Ondansetron HCl (Ondansetron Inj 2 Mg/Ml Inj 2 Ml) 4 mg IV Q6H PRN; Protocol PRN Reason: NAUSEA OR VOMITING Stop: 08/19/24 11:48 Last Admin: 07/21/24 23:57 Dose: 4 mg Pantoprazole Sodium (Pantoprazole Inj 40 Mg Vial) 40 mg IV QDAY [facility] Stop: 08/19/24 14:29 Last Admin: 07/22/24 09:12 Dose: 40 mg Potassium Chloride (Potassium Chloride 20 Meq Tabcr) 40 meq PO X1 ONE Stop: 07/22/24 20:01 Sennosides (Senna Tablet) 1 tab PO QDAY PRN; Protocol PRN Reason: constipation Stop: 08/19/24 11:48 Discontinued Medications Acetaminophen (Acetaminophen 500 Mg Tablet) 1,000 mg PO X1 ONE Stop: 07/20/24 08:34 Last Admin: 07/20/24 08:39 Dose: 1,000 mg Enoxaparin Sodium (Enoxaparin Sod Inj 30 Mg/0.3 Ml Syringe) 30 mg SC QDAY [facility]; Protocol Stop: 08/06/24 08:59 Heparin Sodium (Porcine) (Heparin Sod Inj 5000 Unit/Ml Vial) 5,000 unit SC Q8HR [facility] Stop: 08/03/24 14:29 Last Admin: 07/22/24 05:44 Dose: Not Given Lactated Ringer's (Lactated Ringers) 1,000 mls @ 2,000 mls/hr IV .Q30M ONE Stop: 07/20/24 09:19 Last Infusion: 07/20/24 10:35 Dose: Infused Lactated Ringer's (Lactated Ringers) 1,000 mls @ 125 mls/hr IV .Q8H ONE Stop: 07/20/24 16:49 Last Infusion: 07/20/24 11:00 Dose: Infused Ceftriaxone Sodium 1,000 mg/ (Sodium Chloride) 50 mls @ 100 mls/hr IV X1 ONE Stop: 07/20/24 11:17 Last Infusion: 07/20/24 12:08 Dose: Infused Sodium Chloride (Ns) 1,000 mls @ 999 mls/hr IV .Q1H1M ONE Stop: 07/20/24 12:04 Last Infusion: 07/20/24 11:47 Dose: Infused Ceftriaxone Sodium 1,000 mg/ (Sodium Chloride) 50 mls @ 100 mls/hr IV X1 ONE Stop: 07/20/24 12:14 Last Infusion: 07/20/24 12:47 Dose: Infused Vancomycin HCl 1,000 mg/ (Sodium Chloride) 250 mls @ 150 mls/hr IV X1 ONE Stop: 07/20/24 13:07 Last Admin: 07/20/24 11:42 Dose: Not Given Vancomycin/Sodium Chloride (Vancomycin/Ns 1 Gm Ivpb) 200 mls @ 120 mls/hr IV X1 ONE Stop: 07/20/24 13:09 Last Admin: 07/20/24 11:42 Dose: Not Given Sodium Chloride (Ns) 1,000 mls @ 999 mls/hr IV .Q1H1M ONE Stop: 07/20/24 12:43 Last Infusion: 07/20/24 11:48 Dose: Infused Sodium Chloride (Ns) 2,000 mls @ 999 mls/hr IV .Q2H1M ONE Stop: 07/20/24 13:45 Last Infusion: 07/20/24 12:07 Dose: Infused Sodium Chloride (Ns) 1,000 mls @ 999 mls/hr IV .Q1H1M ONE Stop: 07/20/24 12:45 Last Admin: 07/20/24 12:09 Dose: Not Given Ceftriaxone Sodium 2 gm/ (Sodium Chloride) 50 mls @ 100 mls/hr IV QDAY YISSEL Stop: 07/28/24 08:59 Ceftriaxone Sodium/Dextrose (Rocephin/D5w 2gm) 2 gm in 50 mls @ 100 mls/hr IV QDAY [facility] Stop: 07/28/24 08:59 Norepinephrine/Dextrose (Levophed In D5w 8mg/250ml) 8 mg in 250 mls @ 5.036 mls/hr IV .Q24H PRN; Protocol PRN Reason: PER PROTOCOL Stop: 08/19/24 12:28 Norepinephrine Bitartrate (Levophed In Ns 16mg/250ml) 16 mg in 250 mls @ 2.518 mls/hr IV .Q24H PRN; Protocol PRN Reason: PER PROTOCOL Stop: 08/19/24 12:30 Norepinephrine/Dextrose (Levophed In D5w 8mg/250ml) 8 mg in 250 mls @ 5.036 mls/hr IV .Q24H PRN; Protocol PRN Reason: PER PROTOCOL Stop: 08/19/24 12:40 Last Titration: 07/22/24 06:00 Dose: 0.01 mcg/kg/min, 1.007 mls/hr Piperacillin Sod/Tazobactam (Sod 3.375 gm/ Sodium Chloride) 50 mls @ 12.5 mls/hr IV Q8HR [facility] Stop: 07/21/24 12:00 Last Infusion: 07/21/24 12:00 Dose: Infused Piperacillin Sod/Tazobactam (Sod 3.375 gm/ Sodium Chloride) 50 mls @ 100 mls/hr IV X1 ONE Stop: 07/20/24 16:14 Last Infusion: 07/20/24 16:47 Dose: Infused Piperacillin/Tazobactam/Dextrose (Zosyn) 50 mls @ 12.5 mls/hr IV Q8HR [facility] Stop: 07/27/24 13:59 Last Admin: 07/22/24 05:49 Dose: 12.5 mls/hr Lactated Ringer's (Lactated Ringers) 1,000 mls @ 999 mls/hr IV .Q1H1M ONE Stop: 07/21/24 18:03 Last Infusion: 07/21/24 18:33 Dose: Infused Magnesium Sulfate (Magnesium Sulfate Ivpb) 4 gm in 50 mls @ 12.5 mls/hr IV X1 ONE Stop: 07/22/24 00:04 Last Infusion: 07/22/24 03:14 Dose: Infused Lactated Ringer's (Lactated Ringers) 1,000 mls @ 999 mls/hr IV .Q1H1M ONE Stop: 07/22/24 08:28 Last Admin: 07/22/24 07:34 Dose: 999 mls/hr Insulin Human Lispro (Insulin Lispro (Admelog) 1 Unit/0.01 Ml Unit) 0 unit SC ACHS [facility]; Protocol Stop: 08/19/24 16:59 Last Admin: 07/20/24 17:03 Dose: Not Given Insulin Human Lispro (Insulin Lispro (Admelog) 1 Unit/0.01 Ml Unit) 0 unit SC Q6HR YISSEL; Protocol Stop: 08/20/24 00:00 Lidocaine HCl (Lidocaine Hcl 1% 20 Ml Vial) 10 ml INFL X1 ONE Stop: 07/21/24 02:47 Last Admin: 07/21/24 03:00 Dose: 10 ml Potassium Chloride (Potassium Chloride 10% 20 Meq/15 Ml Udc) 30 meq PO Q1H YISSEL Stop: 07/20/24 17:17 Last Admin: 07/20/24 17:38 Dose: 30 meq Potassium Chloride (Potassium Chloride 20 Meq Tabcr) 40 meq PO X1 ONE Stop: 07/21/24 11:40 Last Admin: 07/21/24 12:03 Dose: 40 meq Potassium Chloride (Potassium Chloride 20 Meq Tabcr) 40 meq PO X1 ONE Stop: 07/22/24 07:11 Last Admin: 07/22/24 07:33 Dose: 40 meq Potassium Chloride (Potassium Chloride 20 Meq Tabcr) 20 meq PO X1 ONE Stop: 07/22/24 07:12 Last Admin: 07/22/24 07:34 Dose: 20 meq Potassium Chloride (Potassium Chloride 20 Meq Tabcr) 40 meq PO X1 ONE Stop: 07/22/24 10:51 Last Admin: 07/22/24 11:27 Dose: 40 meq Assessment & Plan Plan A 29-year-old female with past medical history of gestational diabetes mellitus, recurrent urinary tract infection came to the hospital with chief complaint of back pain, vomitings, diarrhea since 2 days and admitted for sepsis secondary to pyelonephritis and acute kidney injury # Acute kidney injury -prerenal versus ATN # In the setting of GNR bacteremia, 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 Creatinine at the time of admission on 07/21/2023 is 3.4 >>3/5, 2.6 -Blood culture showed gram-negative rods, urine culture showed E. coli Plan -Urine electrolytes ordered -Continue ceftriaxone -Encouraged to take plenty of oral fluids -Monitor renal functions -Avoid nephrotoxic medications and renally dose medications -Strict control of blood sugars # Non-anion gap metabolic acidosis - SHANTI # Hypokalemia -As of 07/22/2024, bicarb 14.6, anion gap 13 -Potassium is 3.2 Plan -Recommended to replace potassium #Complex UTI, improving #Emphysematous pyelonephritis, improving #GNR bacteremia #Septic shock, resolved #Diarrhea #Hypoalbuminemia #New onset Diabetes mellitus #History of gestational diabetes mellitus #Anemia most likely hemodilutiona #Thrombocytopenia -Rest of the medical conditions to be treated as per primary team Thank you for allowing us to involved in the care of the patient Patient plan of care was discussed with the attending physician, Dr. Lexi Krishnamurthy, PGY1 Attending Provider Attestation/Addendum Patient seen and examined with resident physician Dr. Tovar. Note reviewed, agree with findings and recommendations. Patient with acute renal failure, metabolic acidosis, hypokalemia, emphysematous pyelonephritis, sepsis.. Continue with IV fluids, antibiotics. CT scan imaging reviewed. Mild hydronephrosis on the left side. Will monitor renal function closely. Thank you Melia for allowing me to participate in the care of Ms. Canales
[2024-07-22 15:07] LABS: Path Review Blood Smear Sent to Pathologist
--- NOTE | 2024-07-22 16:13 | XR_ITS ---
Examination: Retroperitoneal ultrasound, complete Technique: Multiple high resolution grayscale images of the retroperitoneum obtained, including kidneys and bladder. Exam date and time:July 22, 2024 1647 hrs. Indications: Acute insufficiency on laboratory examination today Findings: Right kidney 11.8 cm renal cortex 1.9 cm Left kidney 12.4 cm cortex 2.5 cm Mild left hydronephrosis No bladder mass Bladder prevoid volume 277 cc Impression: Mild left hydronephrosis
--- NOTE | 2024-07-22 17:00 | PC.SS ---
Addendum entered and electronically signed by MIMA Veloz 07/23/24 11:57: Undersigned provided update to Med/Surg SWISS TYPE SCREW MACHINE OPERATOR regarding patient's passing of infant in Apr 2024. Original Note: SWISS TYPE SCREW MACHINE OPERATOR conducted phone contact with the patient?s spouse, Bubba Dye to conduct initial assessment and to discuss discharge planning on behalf of the patient.? Patient currently admitted to ICU.? Patient is employed.? Patient does not utilize DME to assist with ambulation.? Patient does not require the use of home oxygen.? Patient is able to complete ADL?s independently.? Patient?s medical surrogate decision maker is spouse, Bubba Dye.? PCP is Karlo Pichardo KILEY.? Spouse reports that the patient is aligned with counseling thru [facility] to address passing of infant son in April 2024.? Spouse reports no safety concerns associated with the patient.? Spouse states that he provides support to patient and that they are working thru the event together.? Plan is for the patient to return home at the time of discharge.? Family will provide transportation on behalf of the patient. ?No discharge needs identified by the patient.? No further intervention required at this time, social work program coordinator will be available to address any further concerns.? Next of Kin: Bubba Dye D/Mi Plan: Home
[2024-07-22 19:41] LABS: Creatinine MALB Rnd Ur 29 mg/dL (30-125); Microalbumin Creat Ratio 31 mg/gCrea (<30); Microalbumin, Random Urine 9 mg/L (0-300); Sodium,Urine Random 67.1 mMol/L (20.0-110.0)
[2024-07-22] MEDS: LACTOBACILLUS RHAMNOSUS 1 CAP PO (21:22)
[2024-07-22] MEDS: SODIUM CHLORIDE 0.9% 1000 ML 1,000 ML 999 ML IV (22:36)
[2024-07-22 22:40] LABS: Lactate (Lactic Acid) 1.5 mMol/L (0.4-2.0)
[2024-07-22 22:41] LABS: Basophils % (Auto) 0 % (0-2.5); Eosinophils # (Auto) 0.1 Thou/mm3 (0.0-0.5); Eosinophils % (Auto) 1 % (0-10); Hematocrit 30.8 % (36.0-46.0); Hemoglobin 10.2 g/dL (12.0-16.0); Immature Granulocytes % (Auto) 1 % (0-0); Immature Granulocytes Auto 0.08 Thou/mm3 (0.00-0.00); Lymphocytes # (Auto) 1.3 Thou/mm3 (1.0-4.8); Lymphocytes % (Auto) 19 % (10-50); Mean Corpuscular HGB Conc 33.1 g/dl (31.0-37.0); Mean Corpuscular Hemoglobin 29.6 pg (25.0-35.0); Mean Corpuscular Volume 89 fL (80-100); Monocytes # (Auto) 0.5 Thou/mm3 (0.0-0.8); Monocytes % (Auto) 7 % (0-12); Neutrophils % (Auto) 72 % (37-80); Nucleated Red Blood Cell % 0 /100 WBC (0); RDW Standard Deviation 44.2 fL (36.4-46.3); Red Blood Count 3.45 Miln/mm3 (4.00-5.20); White Blood Count 6.9 Thou/mm3 (3.6-11.0)
[2024-07-22 22:48] LABS: Platelet Count 32 Thou/mm3 (140-440)
[2024-07-22 22:49] LABS: Slide Review Platelets confirmed
[2024-07-22 23:06] LABS: Anion Gap 9 (7-16); BUN/Creatinine Ratio 14 Ratio (12-20); Blood Urea Nitrogen 32 mg/dL (9-23); Calcium 8.1 mg/dL (8.3-10.6); Chloride 113 mMol/L (98-107); Creatinine (Component) 2.3 mg/dL (0.6-1.3); Estimated Creatinine Clearance 31.2 mL/min (>60); Glucose 126 mg/dL (74-106); Osmolality,Calculated 282 (275-295); Potassium 4.7 mMol/L (3.4-5.1); Sodium 137 mMol/L (136-145); eGFR 29 See Note
[2024-07-22 23:47] LABS: Carbon Dioxide 14.9 mMol/L (20.0-31.0)
[2024-07-23] VITALS (12 sets, daily range): BP systolic 74–97; BP diastolic 58–65; PULSE 80–99; RESP 16–96; TEMP 36.1–36.8; O2SAT 97–98; BMI 24.1
[2024-07-23] MEDS: SODIUM CHLORIDE 0.9% 1000 ML 1,000 ML 999 ML IV (04:46)
[2024-07-23 05:58] LABS: Basophils % (Auto) 0 % (0-2.5); Eosinophils # (Auto) 0.1 Thou/mm3 (0.0-0.5); Eosinophils % (Auto) 1 % (0-10); Hematocrit 27.1 % (36.0-46.0); Immature Granulocytes % (Auto) 1 % (0-0); Immature Granulocytes Auto 0.05 Thou/mm3 (0.00-0.00); Lymphocytes # (Auto) 1.6 Thou/mm3 (1.0-4.8); Lymphocytes % (Auto) 22 % (10-50); Mean Corpuscular HGB Conc 32.5 g/dl (31.0-37.0); Mean Corpuscular Hemoglobin 29.3 pg (25.0-35.0); Mean Corpuscular Volume 90 fL (80-100); Monocytes # (Auto) 0.6 Thou/mm3 (0.0-0.8); Monocytes % (Auto) 8 % (0-12); Neutrophils # (Auto) 4.8 Thou/mm3 (1.8-7.7); Neutrophils % (Auto) 68 % (37-80); Nucleated Red Blood Cell % 0 /100 WBC (0); RDW Standard Deviation 45.1 fL (36.4-46.3); White Blood Count 7.1 Thou/mm3 (3.6-11.0)
[2024-07-23 06:03] LABS: Hemoglobin 8.8 g/dL (12.0-16.0); Platelet Count 30 Thou/mm3 (140-440); Slide Review Platelets confirmed
[2024-07-23] MEDS: MIDODRINE 5 MG TABLET PO (06:15)
[2024-07-23 06:34] LABS: Alanine Aminotransferase 19 U/L (10-49); Albumin, Serum 2.4 gm/dL (3.5-5.0); Albumin/Globulin Ratio 1.2 (1.2-2.2); Alkaline Phosphatase 125 U/L (46-116); Anion Gap 10 (7-16); Aspartate Amino Transferase 12 U/L (0-34); BUN/Creatinine Ratio 15 Ratio (12-20); Bilirubin,Total 0.3 mg/dL (0.3-1.2); Blood Urea Nitrogen 30 mg/dL (9-23); Calcium 7.1 mg/dL (8.3-10.6); Calcium (Corrected) 8.4 mg/dL (8.5-10.1); Carbon Dioxide 15.2 mMol/L (20.0-31.0); Chloride 114 mMol/L (98-107); Estimated Creatinine Clearance 35.8 mL/min (>60); Glucose 85 mg/dL (74-106); Osmolality,Calculated 282 (275-295); Potassium 4.4 mMol/L (3.4-5.1); Sodium 139 mMol/L (136-145); Total Protein 4.4 gm/dL (5.7-8.2); eGFR 34 See Note
--- NOTE | 2024-07-23 07:53 | PC.NURSE ---
Notified MD sette about pts current bp 81/60-90 per md initiated new orders given and notified when map is below 60.
[2024-07-23] MEDS: RINGERS LACTATED 1000 ML 1,000 ML 75 ML IV ×2 (08:18→22:37)
[2024-07-23] MEDS: PANTOPRAZOLE INJ 40 MG VIAL IV (09:19)
[2024-07-23] MEDS: cefTRIAXone 1,000 MG in SODIUM CHLORIDE 0.9% (Popper) 50 ML 100 MG IV ×2 (09:19→11:30)
[2024-07-23] MEDS: LACTOBACILLUS RHAMNOSUS 1 CAP PO ×2 (09:19→21:04)
[2024-07-23] MEDS: FLUCONAZOLE 100 MG TABLET 400 MG PO (09:19)
--- NOTE | 2024-07-23 11:24 | PD.RESPRO ---
Documentation for date of: 07/23/24 Subjective Subjective Interval history: Patient is Swazi-speaking and interpreted with the help of wardrobe attendant Ms. Ham is a 29-year-old female with past medical history of gestational diabetes mellitus, recurrent urinary tract infection came to the hospital with chief complaint of back pain, vomitings, diarrhea since 2 days. Reported that she had left sided back pain radiating to the front of abdomen. Also noticed multiple episodes of vomitings associated with nausea, denies hematemesis and diarrheal episodes. Patient denied any febrile episodes, burning micturition, change in the color or frequency of urination. Endorsed that she did not follow-up with her gestational diabetes with PCP and never got any labs done since last . Denies similar complaints in the past ED Course: -Initial vitals were blood pressures 86/74 mmHg, pulse rate of 127 bpm, respiratory 36/min, temperature 99.4 ?F, SpO2 96% with room air -Labs significant for WBC 15.8, Hb 13.1, sodium 133, potassium 4, BUN 36, creatinine 3.6, glucose 404, AST 35, ALT 25, ALP 118, head CT negative -Urine analysis showed -Chest x-ray showed mild vascular congestion. CT abdomen/pelvis showed inflammatory changes surrounding the genitourinary system, most severe around left kidney that demonstrated moderate hydronephrosis and a primarily located within the collecting system. -Patient was admitted for sepsis secondary to pyelonephritis. Patient was initially admitted in the ICU because of hypotension and was treated with antibiotics, IV fluids, vasopressors. As the patient became clinically stable and weaned off vasopressor patient is downgraded to floors for further management. Nephrology was consulted for acute kidney injury secondary to pyelonephritis. 07/23/2024 Patient was seen and examined at bedside. No acute overnight events. Denies any other complaints. Still seems to be mildly hypotensive. Patient received 1000 mL bolus and a dose of midodrine for the hypotension Labs showed improving renal functions with BUN 30, creatinine 2 Fractional excretion of sodium is 3.9% suggesting intrinsic renal pathology, likely ATN in the setting of hypotension and sepsis Urine electrolytes are ordered Recommended to encourage plenty of oral fluids Exam Vital Signs Temp Pulse Resp BP Pulse Ox O2 Del Method O2 Flow Rate 97.0 F 92 19 84/61 L 98 Room Air 2 07/23/24 09:33 07/23/24 10:30 07/23/24 09:33 07/23/24 09:33 07/23/24 09:33 07/23/24 09:33 07/20/24 17:06 Narrative Exam General: Awake. HEENT: Normocephalic, atraumatic, mucous membranes moist. Heart: Regular rate and rhythm, no murmurs. Lungs: Clear to auscultation with no wheezing or crackles. Abdomen: Soft, nondistended, nontender, positive bowel sounds. ?No guarding or rebound tenderness. Neurologic: Alert and oriented x3, no gross neurological deficit, and patient able to move all 4 extremities. Extremities: No edema. Skin: No rash or ecchymoses. Objective Labs 07/23/24 05:25 07/23/24 05:25 Labs: Laboratory Results - last 24 hr 07/22/24 07/22/24 07/22/24 04:45 09:41 12:32 WBC RBC Hgb Hct MCV MCH MCHC RDW Std Deviation Plt Count Neut % (Auto) Lymph % (Auto) [place] % (Auto) Eos % (Auto) Baso % (Auto) Neut # (Auto) Lymph # (Auto) [place] # (Auto) Eos # (Auto) Baso # (Auto) Immature Gran # (Auto) Absolute Nucleated RBC Immature Gran % Nucleated RBC % Smear Path Review Sent to Pathologist Sodium Potassium 3.2 L D Chloride Carbon Dioxide Anion Gap BUN Creatinine Estim Creat Clear Calc eGFR BUN/Creatinine Ratio Glucose Calculated Osmolality Lactic Acid Calcium Corrected Calcium Total Bilirubin AST ALT Alkaline Phosphatase Total Protein Albumin Globulin Albumin/Globulin Ratio Ur Random Microalbumin 9 Ur Random Sodium 67.1 U Creat (Microalbumin) 29 L Microalb/Creat Ratio 31 H Misc Test Result 07/22/24 07/23/24 22:28 05:25 WBC 6.9 7.1 RBC 3.45 L 3.00 L Hgb 10.2 L 8.8 L Hct 30.8 L 27.1 L MCV 89 90 MCH 29.6 29.3 MCHC 33.1 32.5 RDW Std Deviation 44.2 45.1 Plt Count 32 L 30 L Neut % (Auto) 72 68 Lymph % (Auto) 19 22 [place] % (Auto) 7 8 Eos % (Auto) 1 1 Baso % (Auto) 0 0 Neut # (Auto) 5.0 4.8 Lymph # (Auto) 1.3 1.6 [place] # (Auto) 0.5 0.6 Eos # (Auto) 0.1 0.1 Baso # (Auto) 0.0 0.0 Immature Gran # (Auto) 0.08 H 0.05 H Absolute Nucleated RBC 0.00 0.00 Immature Gran % 1 H 1 H Nucleated RBC % 0 0 Smear Path Review Sodium 137 139 Potassium 4.7 D 4.4 Chloride 113 H 114 H Carbon Dioxide 14.9 L* 15.2 L Anion Gap 9 10 BUN 32 H 30 H Creatinine 2.3 H 2.0 H Estim Creat Clear Calc 31.2 L 35.8 L eGFR 29 L 34 L BUN/Creatinine Ratio 14 15 Glucose 126 H D 85 Calculated Osmolality 282 282 Lactic Acid 1.5 Calcium 8.1 L 7.1 L Corrected Calcium 8.4 L Total Bilirubin 0.3 AST 12 ALT 19 Alkaline Phosphatase 125 H Total Protein 4.4 L Albumin 2.4 L D Globulin 2.0 L Albumin/Globulin Ratio 1.2 Ur Random Microalbumin Ur Random Sodium U Creat (Microalbumin) Microalb/Creat Ratio Misc Test Result Platelets confirmed Platelets confirmed ABG Interpretation ABG results: 07/20/24 07/22/24 11:12 07:59 ABG pH 7.35 ABG pCO2 25 L ABG pO2 96 ABG HCO3 13 L ABG O2 Saturation 98 ABG Base Excess -11 L VBG pH 7.27 L VBG pCO2 33 L VBG pO2 38 VBG Base Excess -11 L Quality Measures Quality Measures sepsis Current suspected stage: ruled out Possible source: genitourinary Blood cultures ordered: completed in ED Antibiotic ordered: Yes Assessment & Plan Assessment Current Active Medications: Generic Name Dose Route Start Last Admin Trade Name Freq PRN Reason Stop Dose Admin Acetaminophen 650 mg 07/22/24 16:05 Acetaminophen 325 Mg Tablet PO 08/19/24 11:48 Q6H PRN Fever >100.4 or Pain Dextrose 25 ml 07/20/24 14:11 Dextrose 50%-Water Inj 50 Ml Syringe IV 08/19/24 14:10 Q15MIN PRN BG 50-70 responsive npo pt Dextrose 50 ml 07/20/24 14:11 07/22/24 05:54 Dextrose 50%-Water Inj 50 Ml Syringe IV 08/19/24 14:10 50 ml Q15MIN PRN Administration BG <50 OR BG <70 & pt unresponsive Glucagon 1 mg 07/20/24 14:11 Glucagon Inj 1 Mg Vial IM Q15MIN PRN BG <70, and no IV access Lactated Ringer's 1,000 mls @ 75 mls/hr 07/23/24 07:53 07/23/24 08:18 Lactated Ringers IV 08/22/24 07:52 75 mls/hr .[id number] YISSEL Administration Ceftriaxone Sodium 2 gm/ 50 mls @ 100 mls/hr 07/24/24 09:00 Sodium Chloride IV 07/31/24 08:59 QDAY YISSEL Insulin Human Lispro 0 unit 07/22/24 17:00 07/23/24 08:35 Insulin Lispro (Admelog) 1 Unit/0.01 Ml Unit SC 08/21/24 16:59 Not Given ACHS YISSEL Protocol Lactobacillus Rhamnosus 1 cap 07/22/24 21:00 07/23/24 09:19 Lactobacillus Rhamnosus 1 Cap PO 08/21/24 20:59 1 cap BID YISSEL Administration Ondansetron HCl 4 mg 07/20/24 11:49 07/21/24 23:57 Ondansetron Inj 2 Mg/Ml Inj 2 Ml IV 08/19/24 11:48 4 mg Q6H PRN Administration NAUSEA OR VOMITING Protocol Pantoprazole Sodium 40 mg 07/20/24 14:30 07/23/24 09:19 Pantoprazole Inj 40 Mg Vial IV 08/19/24 14:29 40 mg QDAY YISSEL Administration Sennosides 1 tab 07/20/24 11:49 Senna Tablet PO 08/19/24 11:48 QDAY PRN constipation Protocol Plan A 29-year-old female with past medical history of gestational diabetes mellitus, recurrent urinary tract infection came to the hospital with chief complaint of back pain, vomitings, diarrhea since 2 days and admitted for sepsis secondary to pyelonephritis and acute kidney injury # Acute kidney injury -likely ATN, recovering # In the setting of GNR bacteremia, 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 Creatinine at the time of admission on 07/21/2023 is 3.4 >>3/12, 2.6 >>3/13, 2 -Blood culture showed gram-negative rods one of the blood culture showed E. coli., urine culture showed E. coli -Fractional excretion of sodium is 3.9% suggesting intrinsic renal condition, likely ATN in the setting of sepsis Plan -Renal ultrasound done on 07/22/2024 showed mild left hydronephrosis -Urine electrolytes ordered, pending -Continue ceftriaxone -Encouraged to take plenty of oral fluids -Monitor renal functions -Avoid nephrotoxic medications and renally dose medications -Strict control of blood sugars # Non-anion gap metabolic acidosis - SHANTI # Hypokalemia, resolved -As of 07/22/2024, bicarb 15.2, anion gap 10 -Potassium is 4.4 Plan -Urine electrolytes are ordered -Will start on bicarb tablets #Complex UTI, improving #Emphysematous pyelonephritis, improving #GNR bacteremia #Septic shock, resolved #Diarrhea #Hypoalbuminemia #New onset Diabetes mellitus #History of gestational diabetes mellitus #Anemia most likely hemodilutiona #Thrombocytopenia -Rest of the medical conditions to be treated as per primary team Thank you for allowing us to involved in the care of the patient Patient plan of care was discussed with the attending physician, Dr. Lexi Krishnamurthy, PGY1 Attending Provider Attestation/Addendum Patient seen and examined with resident physician Dr. Tovar. Note reviewed, agree with findings and recommendations. Patient with acute renal failure, metabolic acidosis, hypokalemia, emphysematous pyelonephritis, sepsis. Continue with IV fluids, antibiotics. CT scan imaging reviewed. Mild hydronephrosis on the left side. Creatinine today seems to be better with fluids and antibiotics. Clinically patient feeling much better and was downgraded from ICU to medical floor. Ambulate. Avoid nephrotoxics.
[2024-07-23 15:09] LABS: Chloride,Urine Random 94.4 mMol/L (55.0-125.0); Potassium,Urine Random 19 mMol/L (12-62); Sodium,Urine Random 79.3 mMol/L (20.0-110.0)
--- NOTE | 2024-07-23 15:41 | PD.RESPRO ---
Documentation for date of: 07/23/24 Subjective Subjective Interval history: Patient was seen and examined by the bedside. No acute overnight events. Patient reports feeling better, denies abdominal pain. BP was soft in the morning, but maintaining MAP>65. She was given a bolus of fluid. Exam Vital Signs Temp Pulse Resp BP Pulse Ox O2 Del Method O2 Flow Rate 97.0 F 80 19 94/59 L 98 Room Air 2 07/23/24 12:00 07/23/24 14:04 07/23/24 12:00 07/23/24 12:00 07/23/24 12:00 07/23/24 12:00 07/20/24 17:06 Narrative Exam Physical Exam General: Awake and in no acute distress. Conversational and non-toxic appearing. HEENT: Normocephalic, atraumatic, mucous membranes moist. Heart: Regular rate and rhythm, no murmurs. Lungs: Clear to auscultation with no wheezing or crackles. Abdomen: Soft, nondistended, nontender, positive bowel sounds. ?No guarding or rebound tenderness. Neurologic: Alert and oriented x3, no gross neurological deficit, and patient able to move all 4 extremities. Extremities: No edema. Skin: No rash or ecchymoses. Objective Labs 07/24/24 05:26 07/24/24 05:26 Labs: Laboratory Results - last 24 hr 07/22/24 07/22/24 07/23/24 09:41 22:28 05:25 WBC 6.9 7.1 RBC 3.45 L 3.00 L Hgb 10.2 L 8.8 L Hct 30.8 L 27.1 L MCV 89 90 MCH 29.6 29.3 MCHC 33.1 32.5 RDW Std Deviation 44.2 45.1 Plt Count 32 L 30 L Neut % (Auto) 72 68 Lymph % (Auto) 19 22 [place] % (Auto) 7 8 Eos % (Auto) 1 1 Baso % (Auto) 0 0 Neut # (Auto) 5.0 4.8 Lymph # (Auto) 1.3 1.6 [place] # (Auto) 0.5 0.6 Eos # (Auto) 0.1 0.1 Baso # (Auto) 0.0 0.0 Immature Gran # (Auto) 0.08 H 0.05 H Absolute Nucleated RBC 0.00 0.00 Immature Gran % 1 H 1 H Nucleated RBC % 0 0 Sodium 137 139 Potassium 4.7 D 4.4 Chloride 113 H 114 H Carbon Dioxide 14.9 L* 15.2 L Anion Gap 9 10 BUN 32 H 30 H Creatinine 2.3 H 2.0 H Estim Creat Clear Calc 31.2 L 35.8 L eGFR 29 L 34 L BUN/Creatinine Ratio 14 15 Glucose 126 H D 85 Calculated Osmolality 282 282 Lactic Acid 1.5 Calcium 8.1 L 7.1 L Corrected Calcium 8.4 L Total Bilirubin 0.3 AST 12 ALT 19 Alkaline Phosphatase 125 H Total Protein 4.4 L Albumin 2.4 L D Globulin 2.0 L Albumin/Globulin Ratio 1.2 Ur Random Microalbumin 9 Ur Random Sodium 67.1 Ur Random Potassium Ur Random Chloride U Creat (Microalbumin) 29 L Microalb/Creat Ratio 31 H Misc Test Result Platelets confirmed Platelets confirmed 07/23/24 13:15 WBC RBC Hgb Hct MCV MCH MCHC RDW Std Deviation Plt Count Neut % (Auto) Lymph % (Auto) [place] % (Auto) Eos % (Auto) Baso % (Auto) Neut # (Auto) Lymph # (Auto) [place] # (Auto) Eos # (Auto) Baso # (Auto) Immature Gran # (Auto) Absolute Nucleated RBC Immature Gran % Nucleated RBC % Sodium Potassium Chloride Carbon Dioxide Anion Gap BUN Creatinine Estim Creat Clear Calc eGFR BUN/Creatinine Ratio Glucose Calculated Osmolality Lactic Acid Calcium Corrected Calcium Total Bilirubin AST ALT Alkaline Phosphatase Total Protein Albumin Globulin Albumin/Globulin Ratio Ur Random Microalbumin Ur Random Sodium 79.3 Ur Random Potassium 19 Ur Random Chloride 94.4 U Creat (Microalbumin) Microalb/Creat Ratio Misc Test Result ABG Interpretation ABG results: 07/20/24 07/22/24 11:12 07:59 ABG pH 7.35 ABG pCO2 25 L ABG pO2 96 ABG HCO3 13 L ABG O2 Saturation 98 ABG Base Excess -11 L VBG pH 7.27 L VBG pCO2 33 L VBG pO2 38 VBG Base Excess -11 L Quality Measures Quality Measures sepsis Current suspected stage: sepsis (resolved) Possible source: genitourinary Blood cultures ordered: completed in ED Antibiotic ordered: Yes Assessment & Plan Assessment Current Active Medications: Generic Name Dose Route Start Last Admin Trade Name Freq PRN Reason Stop Dose Admin Acetaminophen 650 mg 07/22/24 16:05 Acetaminophen 325 Mg Tablet PO 08/19/24 11:48 Q6H PRN Fever >100.4 or Pain Dextrose 25 ml 07/20/24 14:11 Dextrose 50%-Water Inj 50 Ml Syringe IV 08/19/24 14:10 Q15MIN PRN BG 50-70 responsive npo pt Dextrose 50 ml 07/20/24 14:11 07/22/24 05:54 Dextrose 50%-Water Inj 50 Ml Syringe IV 08/19/24 14:10 50 ml Q15MIN PRN Administration BG <50 OR BG <70 & pt unresponsive Glucagon 1 mg 07/20/24 14:11 Glucagon Inj 1 Mg Vial IM Q15MIN PRN BG <70, and no IV access Lactated Ringer's 1,000 mls @ 75 mls/hr 07/23/24 07:53 07/23/24 08:18 Lactated Ringers IV 08/22/24 07:52 75 mls/hr .[id number] YISSEL Administration Ceftriaxone Sodium 2 gm/ 50 mls @ 100 mls/hr 07/24/24 09:00 Sodium Chloride IV 07/31/24 08:59 QDAY YSISEL Insulin Human Lispro 0 unit 07/22/24 17:00 07/23/24 12:10 Insulin Lispro (Admelog) 1 Unit/0.01 Ml Unit SC 08/21/24 16:59 Not Given ACHS YISSEL Protocol Lactobacillus Rhamnosus 1 cap 07/22/24 21:00 07/23/24 09:19 Lactobacillus Rhamnosus 1 Cap PO 08/21/24 20:59 1 cap BID YISSEL Administration Ondansetron HCl 4 mg 07/20/24 11:49 07/21/24 23:57 Ondansetron Inj 2 Mg/Ml Inj 2 Ml IV 08/19/24 11:48 4 mg Q6H PRN Administration NAUSEA OR VOMITING Protocol Pantoprazole Sodium 40 mg 07/20/24 14:30 07/23/24 09:19 Pantoprazole Inj 40 Mg Vial IV 08/19/24 14:29 40 mg QDAY YISSEL Administration Sennosides 1 tab 07/20/24 11:49 Senna Tablet PO 08/19/24 11:48 QDAY PRN constipation Protocol Plan The patient is an 29-year-old female with past medical history of gestational diabetes mellitus, recurrent urinary tract infection was admitted for sepsis secondary due to emphysematous pyelonephritis and bacteremia #Complex UTI, improving #Emphysematous pyelonephritis, improving #GNR bacteremia #Septic shock, resolved Patient reports that approximately a week ago, she started having loose stools and also sterted to have flank pain, dysuria and fever, chills. Patient has a recurrent history of urinary tract infection with E. coli. She was admitted to the ICU due to septic shock, requiring pressor support. After starting antibiotics and fluids, her condition improved, she became hemodynamically stable. CT abdomen and pelvis- Inflammatory changes surrounding the genitourinary system, most severe about the left kidney, which demonstrates moderate hydronephrosis and air primarily located in the collecting system. Overall favor emphysematous pyelitis, though degree of inflammation and lack of IV contrast makes developing emphysematous pyelonephritis difficult to exclude.2. Interstitial thickening with right greater than left multilobar airspace opacities, along with trace right pleural effusion.3. Early atherosclerotic changes and near complete fatty replacement of the pancreatic body and tail. Query history of metabolic versus congenital syndromes, including uncontrolled diabetes mellitus. Blood culture revealed GNR, urine culture revealed E. coli, sensitive to ceftriaxone, Zosyn was switched to ceftriaxone. Plan: - Ceftriaxone 07/22- current - Zosyn discontinued 07/22 - Monitor urine output #SHANTI, improving #Hypokalemia, improving #Hyperchloremic metabolic acidosis, resolved Most likely in the setting of multiple NS boluses #Hypocalcemia Most likely secondary due to hemodilution SHANTI most likely prerenal and intrarenal in the setting of septic shock, dehydration and pyelonephritis. Hypokalemia most likely due to GI loss. Discontinued Gray 07/22/24 07/22/24: Estimated 24 hour urinary protein excretion 2.3 g/day 07/24/23: Creatinine improving, 2.0. Elevated urinary protein. Plan: -Patient is having adequate urine output -Nephrology consulted -Continue to monitor daily CMP #Diarrhea #Hypoalbuminemia Most likely in the setting of hemodilution versus malnutrition C. difficile is negative Plan: -Clear liquid diet, will advance as tolerated -Stool cultures pending - banatrol #New onset Diabetes mellitus #History of gestational diabetes mellitus She had a history of diabetes mellitus after that she never followed, A1c 14% Plan: -Insulin sliding scale with Accuchecks -hypoglycemia protocol in place -Diabetes education #Anemia #Thrombocytopenia Anemia most likely hemodilutional DDx: heparin-induced versus in the setting GNR bacteremia, No signs or symptoms of acute bleeding. -Zosyn was discontinued, heparin is on hold -Lovenox cancelled, SCDs - monitor daily CBC Disposition: telemetry DVT prophylaxis: SCDs GI prophylaxis: Protonix Diet: Clear liquid diet Lines: PIV CODE STATUS:Full code Plan of care discussed with attending Dr. Martinez, PGY-[address] Guajardo and PGY-[address] Aldana. Joy Markham MD, PGY 1. Attending Provider Attestation/Addendum I reviewed labs, imaging, EKG, home medications and prior available records. Face to face evaluation was performed by me. I have personally examined the patient and discussed assessment and plan with the IM team. I reviewed the resident note and agree with the plan with exceptions as below. Septic shock Acute E. coli UTI New onset diabetes mellitus, likely type I/insulin-dependent SHANTI Thrombocytopenia Patient remains hypotensive. Restarted IV fluids. Ordered midodrine She is off vasopressors Continue IV ceftriaxone Continue insulin therapy and monitor fingersticks Monitor kidney function: Creatinine is downtrending Avoid nephrotoxins. Renally dosed medications Monitor platelet level Monitor for bleeding Replete potassium as needed and follow-up BMP
[2024-07-23 16:59] LABS: Partial Thromboplastin Time 33.9 Seconds (22.0-36.0)
[2024-07-23] MEDS: INSULIN LISPRO (AdmeLOG) 1 UNIT/0.01 ML UNIT SC (21:02)
[2024-07-24] VITALS: BP 88/67; PULSE 95; PULSE 98; RESP 22; TEMP 37.3; O2SAT 98
[2024-07-24 04:00] VITALS: BP 89/54; PULSE 86; PULSE 91; RESP 18; TEMP 36.9; O2SAT 98
[2024-07-24 06:00] VITALS: BMI 24.1
[2024-07-24 06:04] LABS: Basophils % (Auto) 1 % (0-2.5); Eosinophils # (Auto) 0.1 Thou/mm3 (0.0-0.5); Eosinophils % (Auto) 1 % (0-10); Hematocrit 31.8 % (36.0-46.0); Hemoglobin 10.6 g/dL (12.0-16.0); Immature Granulocytes % (Auto) 1 % (0-0); Immature Granulocytes Auto 0.12 Thou/mm3 (0.00-0.00); Lymphocytes # (Auto) 1.6 Thou/mm3 (1.0-4.8); Lymphocytes % (Auto) 20 % (10-50); Mean Corpuscular HGB Conc 33.3 g/dl (31.0-37.0); Mean Corpuscular Hemoglobin 29.4 pg (25.0-35.0); Mean Corpuscular Volume 88 fL (80-100); Monocytes # (Auto) 0.8 Thou/mm3 (0.0-0.8); Monocytes % (Auto) 10 % (0-12); Neutrophils # (Auto) 5.7 Thou/mm3 (1.8-7.7); Neutrophils % (Auto) 68 % (37-80); Nucleated Red Blood Cell % 0 /100 WBC (0); RDW Standard Deviation 41.9 fL (36.4-46.3); Red Blood Count 3.61 Miln/mm3 (4.00-5.20); White Blood Count 8.4 Thou/mm3 (3.6-11.0)
[2024-07-24 06:12] LABS: Platelet Count 46 Thou/mm3 (140-440); Slide Review Platelets confirmed
[2024-07-24 06:29] LABS: Alanine Aminotransferase 13 U/L (10-49); Albumin, Serum 2.6 gm/dL (3.5-5.0); Albumin/Globulin Ratio 1.2 (1.2-2.2); Alkaline Phosphatase 129 U/L (46-116); Anion Gap 9 (7-16); Aspartate Amino Transferase 12 U/L (0-34); BUN/Creatinine Ratio 14 Ratio (12-20); Bilirubin,Total 0.4 mg/dL (0.3-1.2); Blood Urea Nitrogen 25 mg/dL (9-23); Calcium 7.4 mg/dL (8.3-10.6); Calcium (Corrected) 8.5 mg/dL (8.5-10.1); Carbon Dioxide 17.1 mMol/L (20.0-31.0); Chloride 109 mMol/L (98-107); Creatinine (Component) 1.8 mg/dL (0.6-1.3); Estimated Creatinine Clearance 39.8 mL/min (>60); Globulin 2.2 gm/dL (2.3-3.5); Glucose 85 mg/dL (74-106); Magnesium 1.7 mg/dL (1.6-2.6); Osmolality,Calculated 273 (275-295); Phosphorous 2.1 mg/dL (2.4-5.1); Potassium 4.6 mMol/L (3.4-5.1); Sodium 135 mMol/L (136-145); Total Protein 4.8 gm/dL (5.7-8.2); eGFR 39 See Note
[2024-07-24 07:00] VITALS: PULSE 100
[2024-07-24 07:25] VITALS: BP 83/58; PULSE 101; RESP 17; TEMP 36.8; O2SAT 98
[2024-07-24] MEDS: PANTOPRAZOLE INJ 40 MG VIAL IV (07:47)
[2024-07-24] MEDS: LACTOBACILLUS RHAMNOSUS 1 CAP PO (07:48)
[2024-07-24] MEDS: cefTRIAXone 2 GM in SODIUM CHLORIDE 0.9% (Popper) 50 ML IV (07:50)
--- NOTE | 2024-07-24 10:33 | PD.RESPRO ---
Documentation for date of: 07/24/24 Subjective Subjective Interval history: Ms. Ham is a 29-year-old female with past medical history of gestational diabetes mellitus, recurrent urinary tract infection came to the hospital with chief complaint of back pain, vomitings, diarrhea since 2 days. Reported that she had left sided back pain radiating to the front of abdomen. Also noticed multiple episodes of vomitings associated with nausea, denies hematemesis and diarrheal episodes. Patient denied any febrile episodes, burning micturition, change in the color or frequency of urination. Endorsed that she did not follow-up with her gestational diabetes with PCP and never got any labs done since last . Denies similar complaints in the past ED Course: -Initial vitals were blood pressures 86/74 mmHg, pulse rate of 127 bpm, respiratory 36/min, temperature 99.4 ?F, SpO2 96% with room air -Labs significant for WBC 15.8, Hb 13.1, sodium 133, potassium 4, BUN 36, creatinine 3.6, glucose 404, AST 35, ALT 25, ALP 118, head CT negative -Urine analysis showed -Chest x-ray showed mild vascular congestion. CT abdomen/pelvis showed inflammatory changes surrounding the genitourinary system, most severe around left kidney that demonstrated moderate hydronephrosis and a primarily located within the collecting system. -Patient was admitted for sepsis secondary to pyelonephritis. Patient was initially admitted in the ICU because of hypotension and was treated with antibiotics, IV fluids, vasopressors. As the patient became clinically stable and weaned off vasopressor patient is downgraded to floors for further management. Nephrology was consulted for acute kidney injury secondary to pyelonephritis. 07/23/2024 Patient was seen and examined at bedside. No acute overnight events. Denies any other complaints. Still seems to be mildly hypotensive. Patient received 1000 mL bolus and a dose of midodrine for the hypotension Labs showed improving renal functions with BUN 30, creatinine 2 Fractional excretion of sodium is 3.9% suggesting intrinsic renal pathology, likely ATN in the setting of hypotension and sepsis Urine electrolytes are ordered Recommended to encourage plenty of oral fluids 07/24/2024 Patient was seen and examined at bedside No acute overnight events but patient continues to have low blood pressures, which could be her normal baseline Vitals are stable. Physical examination remains unremarkable. Labs showed improving renal functions with BUN 25, creatinine 1.8 Continue to encourage intake of plenty of oral fluids Recommended to continue to monitor renal functions. Exam Vital Signs Temp Pulse Resp BP Pulse Ox O2 Del Method O2 Flow Rate 98.2 F 101 H 17 83/58 L 98 Room Air 2 07/24/24 07:25 07/24/24 07:25 07/24/24 07:07/24/24 07:25 07/24/24 07:25 07/24/24 07:07/20/24 17:06 Narrative Exam General: Awake. HEENT: Normocephalic, atraumatic, mucous membranes moist. Heart: Regular rate and rhythm, no murmurs. Lungs: Clear to auscultation with no wheezing or crackles. Abdomen: Soft, nondistended, nontender, positive bowel sounds. ?No guarding or rebound tenderness. Neurologic: Alert and oriented x3, no gross neurological deficit, and patient able to move all 4 extremities. Extremities: No edema. Skin: No rash or ecchymoses. Objective Labs 07/24/24 05:26 07/24/24 05:26 Labs: Laboratory Results - last 24 hr 07/23/24 07/23/24 07/24/24 13:15 16:22 05:26 WBC 8.4 RBC 3.61 L Hgb 10.6 L D Hct 31.8 L MCV 88 MCH 29.4 MCHC 33.3 RDW Std Deviation 41.9 Plt Count 46 L D Neut % (Auto) 68 Lymph % (Auto) 20 [place] % (Auto) 10 Eos % (Auto) 1 Baso % (Auto) 1 Neut # (Auto) 5.7 Lymph # (Auto) 1.6 [place] # (Auto) 0.8 Eos # (Auto) 0.1 Baso # (Auto) 0.0 Immature Gran # (Auto) 0.12 H Absolute Nucleated RBC 0.00 Immature Gran % 1 H Nucleated RBC % 0 APTT 33.9 Sodium 135 L Potassium 4.6 Chloride 109 H Carbon Dioxide 17.1 L Anion Gap 9 BUN 25 H Creatinine 1.8 H Estim Creat Clear Calc 39.8 L eGFR 39 L BUN/Creatinine Ratio 14 Glucose 85 Calculated Osmolality 273 L Calcium 7.4 L Corrected Calcium 8.5 Phosphorus 2.1 L Magnesium 1.7 Total Bilirubin 0.4 AST 12 ALT 13 Alkaline Phosphatase 129 H Total Protein 4.8 L Albumin 2.6 L Globulin 2.2 L Albumin/Globulin Ratio 1.2 Ur Random Sodium 79.3 Ur Random Potassium 19 Ur Random Chloride 94.4 Misc Test Result Platelets confirmed ABG Interpretation ABG results: 07/20/24 07/22/24 11:12 07:59 ABG pH 7.35 ABG pCO2 25 L ABG pO2 96 ABG HCO3 13 L ABG O2 Saturation 98 ABG Base Excess -11 L VBG pH 7.27 L VBG pCO2 33 L VBG pO2 38 VBG Base Excess -11 L Quality Measures Quality Measures sepsis Current suspected stage: ruled out Possible source: genitourinary Blood cultures ordered: completed in ED Antibiotic ordered: Yes Assessment & Plan Assessment Current Active Medications: Generic Name Dose Route Start Last Admin Trade Name Freq PRN Reason Stop Dose Admin Acetaminophen 650 mg 07/22/24 16:05 Acetaminophen 325 Mg Tablet PO 08/19/24 11:48 Q6H PRN Fever >100.4 or Pain Dextrose 25 ml 07/20/24 14:11 Dextrose 50%-Water Inj 50 Ml Syringe IV 08/19/24 14:10 Q15MIN PRN BG 50-70 responsive npo pt Dextrose 50 ml 07/20/24 14:11 07/22/24 05:54 Dextrose 50%-Water Inj 50 Ml Syringe IV 08/19/24 14:10 50 ml Q15MIN PRN Administration BG <50 OR BG <70 & pt unresponsive Glucagon 1 mg 07/20/24 14:11 Glucagon Inj 1 Mg Vial IM Q15MIN PRN BG <70, and no IV access Ceftriaxone Sodium/Dextrose 2 gm in 50 mls @ 100 mls/hr 07/25/24 09:00 Rocephin/D5w 2gm IV 07/31/24 08:59 QDAY [facility] Insulin Human Lispro 0 unit 07/22/24 17:00 07/24/24 07:45 Insulin Lispro (Admelog) 1 Unit/0.01 Ml Unit SC 08/21/24 16:59 Not Given ACHS [facility] Protocol Lactobacillus Rhamnosus 1 cap 07/22/24 21:00 07/24/24 07:48 Lactobacillus Rhamnosus 1 Cap PO 08/21/24 20:59 1 cap BID YISSEL Administration Ondansetron HCl 4 mg 07/20/24 11:49 07/21/24 23:57 Ondansetron Inj 2 Mg/Ml Inj 2 Ml IV 08/19/24 11:48 4 mg Q6H PRN Administration NAUSEA OR VOMITING Protocol Pantoprazole Sodium 40 mg 07/20/24 14:30 07/24/24 07:47 Pantoprazole Inj 40 Mg Vial IV 08/19/24 14:29 40 mg QDAY YISSEL Administration Sennosides 1 tab 07/20/24 11:49 Senna Tablet PO 08/19/24 11:48 QDAY PRN constipation Protocol Plan A 29-year-old female with past medical history of gestational diabetes mellitus, recurrent urinary tract infection came to the hospital with chief complaint of back pain, vomitings, diarrhea since 2 days and admitted for sepsis secondary to pyelonephritis and acute kidney injury # Acute kidney injury -likely ATN, recovering # In the setting of GNR bacteremia, 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 Creatinine at the time of admission on 07/21/2023 is 3.4 >>3/12, 2.6 >>3/13, 2 -Blood culture showed gram-negative rods one of the blood culture showed E. coli., urine culture showed E. coli -Fractional excretion of sodium is 3.9% suggesting intrinsic renal condition, likely ATN in the setting of sepsis -Renal ultrasound done on 07/22/2024 showed mild left hydronephrosis Plan -Continue ceftriaxone -Encouraged to take plenty of oral fluids -Monitor renal functions -Avoid nephrotoxic medications and renally dose medications -Strict control of blood sugars # Non-anion gap metabolic acidosis - SHANTI , resolving # Hypokalemia, resolved -Bicarb levels are slowly uptrending, 17.1 as of now -No urine anion gap noted Plan -Continue to monitor electrolytes #Complex UTI, improving #Emphysematous pyelonephritis, improving #GNR bacteremia #Septic shock, resolved #Diarrhea #Hypoalbuminemia #New onset Diabetes mellitus #History of gestational diabetes mellitus #Anemia most likely hemodilutiona #Thrombocytopenia -Rest of the medical conditions to be treated as per primary team Thank you for allowing us to involved in the care of the patient Patient plan of care was discussed with the attending physician, Dr. Lexi Krishnamurthy, PGY1 Attending Provider Attestation/Addendum Patient seen and examined with resident physician Dr. Tovar. Note reviewed, agree with findings and recommendations. Creatinine 1.8. Recommended to increase p.o. fluids. Will follow-up in my office in 1 to 2 weeks. Renal panel in 1 to 2 weeks.
--- NOTE | 2024-07-24 11:05 | PC.SS ---
Follow up note: Pt is on IV antibiotic. Pt is possible d/c home today.
[2024-07-24 12:00] VITALS: BP 91/56; PULSE 100; PULSE 96; RESP 16; TEMP 36.8; O2SAT 98
--- NOTE | 2024-07-24 17:23 | ESDS_ITS ---
<Statement entered by Lara Guajardo MD - 07/25/24 07:54> Patient was seen and examined by me personally. I have reviewed the below documentation by the team resident and agree with its findings with any exceptions as below. Discharge plan was discussed with the attending, Dr. Martinez. Patient stable for discharge, will receive 12 more days of Augmentin to complete 2-week course of antibiotics for E. coli bacteremia. She was provided diabetes education and discharged on insulin glargine 5 U once nightly. She was prescribed a CGM. Patient will [facility] up at [facility] for further management of newly diagnosed diabetes. Lara Guajardo, PGY-2 Planned Discharge Date 07/24/24 DS: Providers Provider Date of admission: 07/20/24 11:49 Primary care physician: Janay Pichardo NP Admitting Provider: Navid Iverson MD Attending Provider on Admission: Ancelmo Martinez MD Consults: 07/20/24 14:21 Referral Registered Dietitian Routine Comment: 07/22/24 13:47 Consult to Nephrology Routine Comment: SHANTI, pyelonephritis Consulting Provider: Maykel Elliott 07/22/24 14:11 Referral Physical Therapy Routine Comment: Physician Instructions: Attending Provider on DC: Joy Markham MD Discharging Provider: Joy Markham MD DS: Diagnosis Problem List Completed Was Problem List Reviewed/Reconciled?: Yes Hospital Course Hospital Course Hospital course: The patient is a 29-year-old female with past medical history of gestational diabetes mellitus, recurrent urinary tract infection came to the hospital with chief complaint of back pain, vomitings, diarrhea. She had a left sided flank pain radiating to the front of abdomen. Patient denied dysuria, change in color or smell of the urine. In the ED she was found to be hypotensive, tachycardic, tachypneic. Labs showed leukocytosis, glucose of 404, UA was positive for signs of urinary infection. hCG was negative. On imaging x-ray showed mild vascular congestion, CT of abdomen and pelvis showed inflammatory changes surrounding the genitourinary system, most severe about the left kidney, which demonstrates moderate hydronephrosis and neck primary located in the collecting system, favor emphysematous pyelitis. Early atherosclerotic changes and nearly complete cardiac placement of the pancreatic body and tail. Patient received 6 L of fluids in the ED, was started on IV antibiotics continued to be hypotensive and was upgraded to the ICU. In the ICU she continued to receive antibiotics and was on pressor support. Blood cultures grew GNR in 1 out of 2 bottles, kidney function has started to improve. She was weaned off vasopressors. Her condition has improved and she was downgraded to the floors. She continued to have good urine output, her diarrhea has improved and she was started on a diet. She continued to have soft blood pressure, but maintained MAP>65, which could be her natural blood pressure baseline. On the floors she denied feeling general weakness, chest pain, abdominal pain. Her A1c was found to be high and she has received diabetes education. She was seen and examined by the bedside and was medically cleared for discharge home with recommendations. Hospital diagnoses: #Complex UTI, resolving #Emphysematous pyelonephritis, resolving #GNR bacteremia #Septic shock, resolved #SHANTI, improving #Hypokalemia, resolved #Hyperchloremic metabolic acidosis, resolved #Hypocalcemia #Diarrhea #Hypoalbuminemia #New onset Diabetes mellitus #History of gestational diabetes mellitus #Anemia #Thrombocytopenia Discharge recommendations: - Follow-up with your PCP in 1-2 weeks - If you don't have a PCP, you can make an appointment at the [facility]: [address] [place] [address] - Take Augmentin 875 mg twice a day for 12 more days - Start insulin glargine 5 U once every night for diabetes - Please use the Continuous Glucose Monitor to keep track of your blood sugars - If blood glucose is less than 150, do not give the insulin - Please continue to hydrate and drink at least 2L of fluid a day - Please try to avoid food that is high in sugars - If your symptoms worsen, call 911 or come to the ED Plan of care discussed with attending Dr. Martinez, PGY-[address] Guajardo. Joy Markham MD, PGY 1. Time Spent with Patient Time attestation: Total time spent providing and/or coordinating discharge services: Exam Vital Signs Temp Pulse Resp BP Pulse Ox O2 Del Method O2 Flow Rate 98.2 F 96 16 91/56 L 98 Room Air 2 07/24/24 12:07/24/24 12:00 07/24/24 12:00 07/24/24 12:07/24/24 12:07/24/24 12:07/20/24 17:06 Narrative Exam Physical Exam General: Awake and in no acute distress. Conversational and non-toxic appearing. HEENT: Normocephalic, atraumatic, mucous membranes moist. Heart: Regular rate and rhythm, no murmurs. Lungs: Clear to auscultation with no wheezing or crackles. Abdomen: Soft, nondistended, nontender, positive bowel sounds. ?No guarding or rebound tenderness. Neurologic: Alert and oriented x3, no gross neurological deficit, and patient able to move all 4 extremities. Extremities: No edema. Skin: No rash or ecchymoses. Discharge Plan Plan Patient Disposition: HOME (Self Care) Patient condition on transfer: Stable Care Plan Goals: Discharge recommendations: - Follow-up with your PCP in 1-2 weeks - If you don't have a PCP, you can make an appointment at the [facility]: [address] [place] [address] - Take Augmentin 875 mg twice a day for 12 more days - Start insulin glargine 5 U once every night for diabetes - Please use the Continuous Glucose Monitor to keep track of your blood sugars - If blood glucose is less than 150, do not give the insulin - Please continue to hydrate and drink at least 2L of fluid a day - Please try to avoid food that is high in sugars - If your symptoms worsen, call 911 or come to the ED ---- via Google translate Recomendaciones para el roxi: - Seguimiento con meyer m?dico de cabecera en 1-2 semanas - Si no tiene m?dico de cabecera, puede programar shu polly en el [facility]?daryl de Sarah: [address] [place] [address] - [place] Augmentin 875 mg dos veces al d?a hay 12 d?as m?s - Comience con insulina glargina 5 U shu vez por la noche para la diabetes - Utilice el monitor continuo de glucosa para controlar leon niveles de az?car en lorena - Si meyer nivel de glucosa en lorena es inferior a 150, no administre insulina - Contin?e hidrat?ndose y kadie al menos 2 litros de l?quido al d?a - Evite los alimentos con alto contenido de az?car - Si leon s?ntomas empeoran, llame al 911 o acuda a urgencias Prescriptions/Referrals Prescriptions/Med Rec: New amoxicillin-pot clavulanate 875-125 mg tablet 1 tab PO BID 12 Days Qty: 24 0RF insulin glargine 100 unit/mL (3 mL) insulin pen 5 unit subcut QPM Qty: 15 0RF (DME) FreeStyle Chelsey 3 Plus Sensor Device See Rx Instructions .Route Qty: 2 3RF Rx Instructions: Install on arm and use to continuously monitor glucose level for 14 days. (DME) FreeStyle Chelsey 3 [place] Misc See Rx Instructions .Route Qty: 1 0RF Rx Instructions: Use for reading blood glucose from Chelsey sensor. (DME) pen needle, diabetic 31 gauge x 1/3 needle See Rx Instructions .Route Qty: 100 0RF Rx Instructions: Use with insulin glargine pen. Discontinued acetaminophen-codeine 300-30 mg tablet 1 tab PO Q8H PRN (Reason: pain) Qty: 14 0RF ibuprofen 800 mg tablet 800 mg PO Q8H PRN (Reason: pain) Qty: 30 0RF Referrals: Janay Pichardo [employer]IPMENT OPERATOR [Primary Care Provider] - Patient/Caregiver Discharge Instructions Discharge Activity: activity as tolerated Education Materials: Urinary Tract Infections in Women, Understanding Urinary Tract ..., Kidney Infec Dc, Diabetes: Meal Planning, Diabetes Carbs Fats Protein, Can You Control Diabetes ... Print Language: Hungarian Stand Alone Forms: Marina Award Info., Patient Portal Info Letter Discharge Order Discharge Orders: Discharge (Routine); Ordered 07/24/24 Ordered By: Lara Guajardo Quality Discharge Quality Measures VTE prophylaxis Attestestation Attestation I reviewed labs, imaging, EKG, home medications and prior available records. Face to face evaluation was performed by me. I have personally examined the patient and discussed assessment and plan with the IM team. I reviewed the resident note and agree with the plan with exceptions as below. Septic shock Acute E. coli UTI New onset diabetes mellitus, likely type I/insulin-dependent SHANTI Thrombocytopenia BP improved with IV hydration. Encourage oral hydration upon discharge Continue p.o. Augmentin. Total 14 days of treatment Continue insulin therapy and monitor fingersticks as outpatient. Adjust as needed as outpatient. Continue diabetic diet. Diabetes education was provided Monitor kidney function: Creatinine is downtrending Avoid nephrotoxins. Renally dosed medications Repeat BMP and CBC in 1 week Time spent is 40 minutes. More than 50% of the time was spent on patient education and coordination of care.
== END 2024-07-24 14:49 | disposition home or self-care (01) | DRG 720 ==
LOC: SERX 11:28 → SERHOLD 12:27 → S2SX 19:35 → S3NX 07-22 21:07
PROVIDERS: Internal Medicine; Nurse Practitioner Family; Student in an Organized Health Care Education/Training Program; Admitting Provider Internal Medicine Critical Care Medicine; Emergency Provider Emergency Medicine; PCP Nurse Practitioner Women's Health; Visit Provider Student in an Organized Health Care Education/Training Program
DX: A41.51 Sepsis due to Escherichia coli [E. coli] (principal); R19.7 Diarrhea, unspecified; I95.9 Hypotension, unspecified; E86.0 Dehydration; E11.65 Type 2 diabetes mellitus with hyperglycemia; N17.9 Acute kidney failure, unspecified; R65.21 Severe sepsis with septic shock; E87.6 Hypokalemia; N13.6 Pyonephrosis; E87.29 Other acidosis; E88.09 Other disorders of plasma-protein metabolism, not elsewhere classified; E87.8 Other disorders of electrolyte and fluid balance, not elsewhere classified; E83.51 Hypocalcemia; D64.9 Anemia, unspecified; Z87.440 Personal history of urinary (tract) infections; N17.0 Acute kidney failure with tubular necrosis; D69.6 Thrombocytopenia, unspecified; Z86.32 Personal history of gestational diabetes
CPT/HCPCS: 36415; 36600; 71045; 71250; 74176; 76770; 80048; 80053; 81001; 81025; 82010; 82043; 82436; 82570; 82803; 83036; 83605; 83690; 83735; 84100; 84132; 84133; 84156; 84300; 85025; 85610; 85730; 86038; 87015; 87040; 87045; 87046; 87077; 87081; 87086; 87102; 87186; 87205; 87493; 87811; 87899; 93225; 96361; 96365; 96367; 96372; 96375; 97162; 99291; J0696; J1643; J1815; J2405; J2470; J2543; J3475; J3490; J7030; J7050; J7120; A9270

== ENCOUNTER 2025-03-22 09:44 | Emergency (ER) | payer MEDICAID, SELFPAY ==
[2025-03-22 09:46] VITALS: BMI 25.7
[2025-03-22 09:58] VITALS: BP 111/79; PULSE 100; RESP 18; TEMP 36.9; O2SAT 99
--- NOTE | 2025-03-22 10:02 | EDNOTE_ITS ---
<Statement entered by Rose Marie Duckworth MD - 03/22/25 17:56> As co-signing physician, I was present and available for consult prn. I concur with the plan and care as documented by the midlevel provider. ED Ear RME/HPI General Chief complaint: Ear Stated complaint: LEFT EAR PAIN X 5 DAYS Time Seen by Provider: 03/22/25 09:51 Source: patient Arrival date/time: 03/22/25 09:44 30-year-old female with no known medical history presents to the emergency room with a chief complaint of tenderness, drainage to the left ear x 5 days Mode of arrival: ambulatory Limitations: no limitations Related Data Previous Rx's ?Medication ?Instructions ?Recorded blood-glucose sensor (FreeStyle #2 ea 07/24/24 Chelsey 3 Plus Sensor device) blood-glucose,inspector salvage,cont #1 ea 07/24/24 (FreeStyle Chelsey 3 [place]) insulin glargine 100 unit/mL (3 5 unit (0.05 mL) subcu t QPM 07/24/24 mL) subcutaneous pen diabetes #15 mL pen needle, diabetic 31 gauge x #100 ea 07/24/24/ amoxicillin 875 mg-potassium 1 tab PO BID 7 days #14 t abs 03/22/25 clavulanate 125 mg tablet ofloxacin 0.3 % ear drops 5 drp otic (ear) QDAY 7 days #5 mL 03/22/25 Allergies Allergy/AdvReac Type Severity Reaction Status Date / Time No Known Allergies Allergy Verified 03/22/25 09:48 Review of Systems Review of Systems Systems Reviewed: All systems reviewed, normal except as documented Constitutional Constitutional: Reports system reviewed and no additional complaints, except as documented, Denies fatigue, Denies fever(s), Denies headache(s) and Denies weakness Eyes Eyes: Reports system reviewed and no additional complaints, except as documented, Denies blurry vision and Denies change in vision ENT Ears, Nose, Mouth, and Throat: Reports system reviewed and no additional complaints, except as documented, Reports ear discharge, Reports otalgia, Denies headache(s), Denies nasal congestion, Denies throat swelling and Denies vertigo Cardiovascular Cardiovascular: Reports system reviewed and no additional complaints, except as documented, Denies chest pain, Denies dyspnea and Denies dyspnea on exertion Respiratory Respiratory: Reports system reviewed and no additional complaints, except as documented, Denies chest congestion, Denies cough, Denies dyspnea, Denies dyspnea on exertion and Denies wheezing Gastrointestinal Gastrointestinal: Reports system reviewed and no additional complaints, except as documented, Denies abdominal pain, Denies cramping, Denies nausea and Denies vomiting Genitourinary Genitourinary: Reports system reviewed and no additional complaints, except as documented Musculoskeletal Musculoskeletal: Reports system reviewed and no additional complaints, except as documented and Denies back pain Integumentary/Breasts Skin/Breast: Reports system reviewed and no additional complaints, except as documented and Denies wounds Neurologic Neurologic: Reports system reviewed and no additional complaints, except as do cumented, Denies confusion, Denies headache(s), Denies lack of coordination, Denies vertigo and Denies weakness Psychiatric Psychiatric: Reports system reviewed and no additional complaints, except as documented, Denies anxiety, Denies confusion, Denies depression, Denies paranoia, Denies suicidal ideation and Denies tactile hallucinations Endocrine Endocrine: Reports system reviewed and no additional complaints, except as documented and Denies fatigue Hematologic/Lymphatic Hematologic/Lymphatic: Reports system reviewed and no additional complaints, except as documented and Denies lymphadenopathy Allergic/Immunologic Allergic/Immunologic: Reports system reviewed and no additional complaints, except as documented, Denies throat swelling, Denies urticaria and Denies wheezing Past Medical History Past Medical History NEUROLOGIC: Negative Neurological Disorders CARDIAC: Negative Cardiac Disorders or Congestive Heart Failure RESPIRATORY: Negative Chronic Obstructive Pulmonary Disease (COPD) GASTROINTESTINAL: Negative Gastrointestinal Disorders, Hepatitis or Colorectal Cancer GENITOURINARY: Positive Genitourinary Disorders; Negative Renal Disease or Prostate Cancer REPRODUCTIVE: Positive Previous Pregnancies; Negative Breast Cancer or Testicular Cancer MUSCULOSKELETAL: Negative Musculoskeletal Disorders or Bone Cancer ENDOCRINE: Positive Endocrine Disorders; Negative Diabetes Mellitus Type 1 or Diabetes Mellitus Type 2 HEMATOLOGIC: Positive Blood Disorders and Anemia OTHER HISTORY: Positive Chicken Pox; Negative Autoimmune Disease, Blood Transfusions, Blood Transfusion Reaction, Anesthesia Reactions, Organ Transplant, Chemotherapy, Radiation Therapy, Hyperbaric Therapy, MRSA, VRSA, Vancomycin-Resistant Enterococci, Human Immu nodeficiency Virus (HIV), Measles, Mumps, Rubella ([place] Measles), Pertussis, Clostridium Difficile, Cancer, Breast Cancer, Cervical Cancer, Colorectal Cancer, Lung Cancer, Ovarian Cancer, Prostate Cancer or Testicular Cancer Family History FAMILY HISTORY: Negative Family Psychiatric Problems, Family Respiratory Disorders, Family Cardiac Disorders, Family Gastrointestinal Problems, Family Cancer, Family Surgery or Family Anesthesia Reaction Surgical History SURGICAL: Positive Section; Negative Organ Transplant Social History SMOKING STATUS: Never smoker ED Exam General Limitations: Present no limitations General appearance: Present alert and in no apparent distress Head Head exam: Present atraumatic Eye Eye exam: Present normal appearance, PERRL and EOMI ENT ENT exam: Present normal exam, normal oropharynx and mucous membranes moist Expanded ENT Exam External ear exam: Present external tenderness TM/Canal exam: Left TM: erythema, bulging, effusion, canal discharge and canal tenderness Neck Neck exam: Present normal inspection, full ROM and trachea midline Chest Chest inspection: Present normal inspection and symmetric chest wall rise Respiratory Respiratory exam: Present normal lung sounds bilaterally Cardiovascular Cardiovascular exam: Present regular rate, normal rhythm and normal heart sounds Abdominal Exam Abdominal exam: Present soft and normal bowel sounds Extremities Exam Extremities exam: Present normal inspection and full ROM Back Exam Back exam: Present normal inspection and full ROM Neurological Exam Neurological exam: Present alert, oriented X3 and CN II-XII intact Psychiatric Psychiatric exam: Present normal affect and normal mood Skin Skin exam: Present warm, dry, intact and normal color Course Quality Measures none Orders Category Date Time Status cefTRIAXone [Rocephin] 1,000 mg Med 03/22/25 10:00 Discontinued Lidocaine 1% 20 ml [Xylocaine 1% 20 ML] 2.1 ml IM X1 Vital Signs Vital signs: Vital Signs Temperature 98.5 F 03/22/25 09:58 Pulse Rate 100 03/22/25 09:58 Respiratory Rate 18 03/22/25 09:58 Blood Pressure 111/79 03/22/25 09:58 Pulse Oximetry (%) 99 03/22/25 09:58 Oxygen Delivery Method Room Air 03/22/25 09:58 Ear MDM Narrative MDM Narrative:: 30-year-old female with no known medical history presents to the emergency room with a chief complaint of tenderness, drainage to the left ear x 5 days Patient is hemodynamically stable and in no apparent distress Physical examination shows an erythemic left-sided bulging tympanic membrane. There is external ear canal tenderness and drainage. The findings are consistent with otitis media. Antibiotics were given here as well as prescribed to her pharmacy Patient was discharged and educated to follow-up with primary care provider in the next 24 to 48 hours and return to the emergency room for any evidence of worsening signs or symptoms Patient data External records reviewed:: [facility] previous records Clinical information provided by:: patient Social determinants that could affect healthcare access:: none Patient has the following chronic illnesses:: No chronic illness How is presenting disease/condition affected by chronic disease/condition?: no chronic disease Evaluation data The following diagnostics were reviewed and interpreted by me:: lab results and radiology exam(s) Lab and/or radiology exams considered but not ordered:: Labs and radiology exams considered and ordered Interpretation Summary: N/A Medications / Prescriptions Medications or Prescriptions considered but not ordered:: Medication given Medication administrations:: Medication Administration History Discontinued Medications Ceftriaxone Sodium 1,000 mg/ (Lidocaine HCl 2.1 ml) 0 mg IM X1 ONE Stop: 03/22/25 10:01 Medication given Consultations Consultation(s) initiated? (list below): No Diagnosis Ear Differential Diagnosis: otitis externa, otitis media and ruptured TM Most likely diagnosis given after review of the tests above:: Otitis media Admission Indicated Admission indicated?: not indicated Admission Request Was there a request for admission?: No Disposition Plan Disposition Plan: Discharge Discharge Attestation Discharge Attestation: The patient and all family members were given an opportunity to ask questions and understood the discharge instructions. Discharge instructions specifically effects, indications for sooner follow up or return to the emergency department, and the expected course of current diagnosis. Patient condition: Stable Discharge Plan Plan Patient Disposition: HOME (Self Care) Prescriptions/Referrals Prescriptions/Med Rec: New ofloxacin 0.3 % drops 5 drp otic (ear) QDAY 7 Days Qty: 5 0RF amoxicillin-pot clavulanate 875-125 mg tablet 1 tab PO BID 7 Days Qty: 14 0RF No Action insulin glargine 100 unit/mL (3 mL) insulin pen 5 unit subcut QPM Qty: 15 0RF (DME) FreeStyle Chelsey 3 Plus Sensor Device See Rx Instructions .Route Qty: 2 3RF Rx Instructions: Install on arm and use to continuously monitor glucose level for 14 days. (DME) FreeStyle Chelsey 3 [place] Misc See Rx Instructions .Route Qty: 1 0RF Rx Instructions: Use for reading blood glucose from Chelsey sensor. (DME) pen needle, diabetic 31 gauge x 1/3 needle See Rx Instructions .Route Qty: 100 0RF Rx Instructions: Use with insulin glargine pen. Problem List Clinical Impression: Otitis media Patient/Caregiver Discharge Instructions Education Materials: ED Otitis Media Antibiotic ... Additional Instructions: Por favor, consulte con meyer m?dico de cabecera en las pr?ximas 24 a 48 horas. Los antibi?ticos se bae enviado a meyer farmacia; por favor, rec?jalos y t?melos seg?n las indicaciones. Si observa alg?n empeoramiento de los signos o s?ntomas, regrese inmediatamente a urgencias. Print Language: Albanian Stand Alone Forms: Marina Award Info., Work/School Release, Patient Portal Info Letter PA/INFORMATION TECHNOLOGY ASSOCIATE Supervising Physician PA/INFORMATION TECHNOLOGY ASSOCIATE Supervising Physician: Dr. Dumont
[2025-03-22] MEDS: cefTRIAXone 1,000 MG, LIDOCAINE 1% 20 ML 2.1 ML IM (10:19)
== END 2025-03-22 11:09 | disposition home or self-care (01) ==
PROVIDERS: Emergency Provider Emergency Medicine; PCP Family Medicine
DX: H66.92 Otitis media, unspecified, left ear (principal); E11.9 Type 2 diabetes mellitus without complications; Z79.4 Long term (current) use of insulin
CPT/HCPCS: 96372; 99282; J0696; J3490